=== PATIENT | female | born 1990 | race Caucasian/White ===

== ENCOUNTER 2021-04-17 18:28 | Emergency (ER) | payer OTHER, SELFPAY ==
--- NOTE | ~2021-04-17 | CT_ITS ---
EXAMINATION: CTA chest PE protocol DATE: 04/17/2021 22:41 INDICATION: Intermittent chest pain. TECHNIQUE: Computed tomography angiography (CTA) of the chest was performed with 100 mL Omnipaque-350 intravenous contrast timed to evaluate the pulmonary arteries. Coronal maximum intensity projection 3D-reconstructions were created by the technologist. Automated exposure control and iterative reconst ruction technique were employed. The dose-length product was 377.92 mGy-cm. COMPARISON: Chest single view 04/17/2021 FINDINGS: There is no pneumonia or pleural effusion. The heart size is normal. No pericardial effusio n. There is no pulmonary embolus. There is moderate thoracic spondylosis. IMPRESSION: 1. No pulmonary embolus. Reviewed, dictated and finalized at location A. IMPRESSION: 1. No pulmonary embolus.
--- NOTE | ~2021-04-17 | XR_ITS ---
EXAMINATION: XR chest 1V portable DATE: 04/17/2021 19:10 INDICATION: Midsternal chest pain. TECHNIQUE: A single frontal view of the chest was obtained. COMPARISON: None. FINDINGS: The chest demonstrates clear lungs without pneumonia, pleural effusion, or pneumothorax. Th e heart size is normal. IMPRESSION: 1. No acute cardiopulmonary disease. Reviewed, dictated and finalized at location A.
--- NOTE | 2021-04-17 18:31 | ECG_ITS ---
Measurements Intervals [place] Rate: 76 P: 27 VA: 152 QRS: -7 QRSD: 95 T: 39 QT: 375 QTc: 422 Interpretive Statements SINUS RHYTHM INCOMPLETE RIGHT BUNDLE BRANCH BLOCK BASELINE ARTIFACT- I, II, III, AVR, AVL, AVF, V1-V6 BORDERLINE ECG Electronically Signed On 04-17-2021 19:59:01 CDT by Chang Hodgson D.O.
[2021-04-17 18:43] VITALS: BP 126/80; PULSE 78; RESP 16; TEMP 36.4; O2SAT 96
--- NOTE | 2021-04-17 19:24 | ED.GENADULT ---
HPI - General Adult General Chief complaint: Chest Pain Stated complaint: chest pain Time Seen by Provider: 04/17/21 18:53 Source: patient Mode of arrival: ambulatory Limitations: no limitations History of Present Illness HPI narrative: This is 30 year old female with history of anxiety and depression who presents for evaluation of chest pain and depression. Patient states in February she found the father of her child . She has been having worsening anxiety and depression since this event. She was started on Hydroxyzine 1-2 weeks ago for anxiety. She states he developed substernal, epigastric pain after taking that medication for 4 days. She was taken off hydroxyzine, and she was started on Buspirone and Depakote on 04/08/21. She has continued to have this chest pain. She reports this pain is intermittent and she describes as tightening that radiations across her upper abdomen into her back. She denies associated shortness of breath, cough, fever or diaphoresis. She reports pain is 8/10. Today she developed nausea and vomiting. She also notes her chest pain started after trying [facility] Related Data Home Medications Medication Instructions Recorded Confirmed buspirone mg 04/17/21 Allergies Allergy/AdvReac Type Severity Reaction Status Date / Time No Known Allergies Allergy Verified 04/17/21 19:37 Review of Systems Review of Systems: All systems reviewed & are unremarkable except as noted in HPI and below Constitutional: Constitutional: Denies chills and Denies fever(s) Cardiovascular: Cardiovascular: Reports chest pain and Reports rapid heart rate Respiratory: Respiratory: Denies cough and Denies dyspnea Gastrointestinal: Gastrointestinal: Denies abdominal pain, Reports nausea and Reports vomiting Psychiatric: Psychiatric: Reports anxiety and Reports depression [facility] Past Medical History Medical History (Updated 04/17/21 @ 23:42 by Kalyn Merritt MD) Anxiety Depression Social History Social History (Updated 04/17/21 @ 19:26 by Kalyn Merritt MD) Smoking packs per day: 0.5 Smoking cigarettes per day: 10.0 Smoking status: Current every day smoker Substance use type: marijuana and hallucinogens Exam Const: General: no acute distress and alert Nutritional Appearance: obese Orientation/consciousness: patient oriented x3 HENMT: Head: normocephalic and atraumatic Eyes: EOM: EOMs intact bilaterally Chest: Chest palpation & inspection: tenderness sternum Resp: Effort & Inspection: normal respiratory effort Auscultation: clear to auscultation bilaterally Cardio: Rate: regular rate, not bradycardic and not tachycardic Rhythm: regular rhythm and regular rhythm Heart sounds: no murmurs GI: GI Palp: Yes Soft to palpation, No Tenderness to palpation present (GI) and No Guarding due to palpation present (GI) Auscultation: normal bowel sounds Skin: General skin exam: normal color Rashes: no rashes Neuro: General: patient oriented x3, moves all extremities and CN's II-XI intact bilaterally Extrem: General: normal to inspection and no pedal edema Psych: Mental Status: mental status grossly normal Affect: normal affect Course Reevaluation(s) Reevaluation #1: I discussed with patient chest pain is atypical. evaluated is unremarkable other than leukocytosis. She reports she recent had tattoo performed on right forearm and it has gotten infected. This is likely source of leukocytosis. Tattoo has some areas of wade crusting but no erythema. She states she did not come to ER for depression. She states she would never kill herself and she has no intention of harming herself . She is not suicidal. Date: 04/17/21 Time: 23:36 Vital Signs Vital signs: Vital Signs Temperature 97.6 F 04/17/21 18:43 Pulse Rate 78 04/17/21 18:43 Respiratory Rate 16 04/17/21 18:43 Blood Pressure 126/80 04/17/21 18:43 Pulse Oximetry 96 04/17/21 18:43 Temp
[2021-04-17 19:26] LABS: Basophils Absolute Auto 0.1 K/mm3 (0.0-0.1); Basophils Percent Auto 0.5 % (0.2-1.2); Eosinophils Absolute Auto 0.1 K/mm3 (0-0.3); Eosinophils Percent Auto 0.6 % (0-4.4); Hematocrit 39.6 % (37.0-47.0); Hemoglobin 13.7 g/dL (12.0-15.0); Immature Granulocyte Absolute 0.11 K/mm3 (0.00-0.031); Immature Granulocyte Percent A 0.5 % (0-0.5); Lymphocytes Absolute Auto 2.69 K/mm3 (0.9-3.2); Lymphocytes Percent Auto 11.7 % (18.3-44.2); Mean Corpuscular HGB Conc 34.6 g/dl (32-36); Mean Corpuscular Hemoglobin 34.1 pg (26-34); Mean Corpuscular Volume 98.5 fl (80-100); Mean Platelet Volume 10.5 fl (7.4-10.4); Monocytes Percent Auto 4.4 % (2.6-8.5); Neutrophils Absolute Auto 18.9 K/mm3 (1.3-6.7); Neutrophils Percent Auto 82.3 % (45.5-73.1); Platelet Count Result 278 k/mm3 (150-375); Red Blood Count 4.02 M/mm3 (4.2-5.4); Red Cell Distribution Width 13.1 % (11.5-14.5)
[2021-04-17 19:33] LABS: Add Urine Microscopic? YES; Appearance Urine Clear (Clear); Bacteria Urine Trace /hpf; Bilirubin Urine Negative (Negative); Blood Urine Negative (Negative); Color Urine Yellow (Yellow); Glucose Urine UA Negative (Negative); Ketones Urine Negative (Negative); Leukocyte Esterase Ur Trace LEU/UL (Negative); Mucus Urine Rare /lpf; Nitrate Urine Negative (Negative); Protein Urine Negative (Negative); RBC Urine 0-2 /hpf (0-2); Specific Grav Ur 1.009 (1.001-1.035); Squamous Epithelial Cell Urine Few /hpf (Few); Urobilinogen Urine Negative mg/dL (<2.0); WBC Urine 0-3 /hpf
[2021-04-17 19:36] LABS: Ethanol < 10 mg/dL (<10)
[2021-04-17 19:38] LABS: Anion Gap 7 mmol/L (8-16); Blood Urea Nitrogen 6 mg/dL (7-17); Calcium 9.4 mg/dL (8.4-10.2); Carbon Dioxide 28 mmol/L (22-30); Chloride 106 mmol/L (98-107); Estimated CRCL calculation 108 ml/min; Estimated Glomerular Filt Rate > 60; Glucose 148 mg/dL (65-110); Potassium 3.7 mmol/L (3.4-5.0); Sodium 141 mmol/L (137-145)
[2021-04-17 19:39] LABS: INR 0.9; Partial Thromboplastin Time 25.2 SECONDS (22.3-36.8)
[2021-04-17 19:49] LABS: Troponin I < 0.012 ng/mL (0.000-0.034)
[2021-04-17 20:00] LABS: Barbiturate Screen Urine Negative (Negative); Benzodiazepines Screen Urine Negative (Negative)
[2021-04-17 20:01] LABS: Amphetamine Screen Urine Negative (Negative); Cannabinoid Screen Urine Positive (Negative); Methadone Screen Urine Negative (Negative); Opiate Screen Urine Negative (Negative); Phencyclidine Screen Urine Negative (Negative)
[2021-04-17 20:09] LABS: Thyroid Stimulating Hormone 0.628 uIU/mL (0.465-4.680)
[2021-04-17 20:28] LABS: D Dimer 1.04 ug/mL (<0.48)
[2021-04-17 20:35] LABS: Alanine Aminotransferase 19 U/L (4-35); Albumin Level 4.4 g/dL (3.5-5.1); Alkaline Phosphatase 115 U/L (38-126); Aspartate Amino Transferase 23 U/L (14-36); Bilirubin,Total 0.5 mg/dL (0.2-1.3); Lipase 17 U/L (23-300)
[2021-04-17 21:59] LABS: Troponin I < 0.012 ng/mL (0.000-0.034)
[2021-04-17 22:28] LABS: Valproic Acid 29.7 ug/mL (50-120)
[2021-04-18] MEDS: KETOROLAC 30 MG/ML VIAL (*BKC) IV PUSH (00:17)
[2021-04-18 00:18] VITALS: BP 119/78; PULSE 74; RESP 18; O2SAT 99
[2021-04-18 16:29] LABS: Cocaine Screen Urine Negative (Negative)
== END 2021-04-18 00:59 | disposition home or self-care (01) ==
PROVIDERS: Emergency Medicine; Emergency Provider General Practice
DX: R07.89 Other chest pain (principal); L01.00 Impetigo, unspecified; F41.9 Anxiety disorder, unspecified; F32.A Depression, unspecified; F17.210 Nicotine dependence, cigarettes, uncomplicated; I45.10 Unspecified right bundle-branch block
CPT/HCPCS: 36415; 71045; 71275; 80048; 80076; 80164; 80307; 81001; 81025; 83690; 84443; 84484; 85025; 85380; 85610; 85730; 93005; 96374; 99284; J1885; Q9967

== ENCOUNTER 2022-02-15 02:25 | Emergency (ER) | payer OTHER, SELFPAY ==
--- NOTE | ~2022-02-15 | XR_ITS ---
EXAMINATION: XR knee RT 3V DATE: 02/15/2022 02:49 INDICATION: Right knee pain post fall TECHNIQUE: Anteroposterior, oblique and crosstable lateral views of the right knee were obtained COMPARISON: None. FINDINGS: Alignment is normal. No fracture. No joint effusion/layering lipohemarthrosis. Soft tissues are unre markable. IMPRESSION: 1. Negative right knee radiographs. Reviewed, dictated and finalized at location A.
[2022-02-15 02:24] VITALS: BP 144/90; PULSE 100; RESP 16; TEMP 36.2; O2SAT 97
[2022-02-15] MEDS: NAPROXEN 500 MG TABLET PO (02:38)
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
== END 2022-02-15 03:10 | disposition home or self-care (01) ==
PROVIDERS: Emergency Provider Emergency Medicine; PCP Family Medicine
DX: M23.91 Unspecified internal derangement of right knee (principal); F41.9 Anxiety disorder, unspecified; F32.9 Major depressive disorder, single episode, unspecified
CPT/HCPCS: 73562; 99283; A9270

== ENCOUNTER 2022-07-01 12:30 | Outpatient (CLI) | payer OTHER, SELFPAY ==
[2022-07-06 13:26] LABS: Factor V (Leiden) Mutation NEGATIVE
== END 2022-07-01 12:31 | disposition home or self-care (01) ==
PROVIDERS: PCP Family Medicine; Visit Provider Internal Medicine Hematology & Oncology
DX: D68.9 Coagulation defect, unspecified (principal)
CPT/HCPCS: 36415; 81241

== ENCOUNTER 2022-07-21 12:08 | Outpatient (CLI) | payer OTHER, SELFPAY | END 2022-07-21 12:09 | disposition home or self-care (01) | PROVIDERS: PCP Family Medicine; Visit Provider Internal Medicine Hematology & Oncology | DX: D68.9 Coagulation defect, unspecified (principal) | CPT/HCPCS: 36415; 81240 ==

== ENCOUNTER 2022-08-15 12:21 | Emergency (ER) | payer OTHER, SELFPAY ==
[2022-08-15 12:31] VITALS: BP 105/81; PULSE 76; RESP 14; TEMP 36.7; O2SAT 98
--- NOTE | 2022-08-15 12:35 | ED.URI ---
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 Patient states the symptoms have been going on for approximately 1 month. Patient denies any choking, difficulty breathing or swallowing, fevers, chills, vomiting, or diarrhea. Patient was recently diagnosed with a DVT in her left leg and has not recieved treatment yet. Pt staets they are planning on doing a procedure on her leg due to the large size of the clot. Pt is not on anticoagulants. Pt reports intermittent shortness of breath. Related Data Home Medications Medication Instructions Recorded Confirmed buspirone 5 mg tablet 5 mg PO DIRECTED 04/17/21 08/15/22 Allergies Allergy/AdvReac Type Severity Reaction Status Date / Time latex Allergy Swelling Verified 08/15/22 12:33 Review of Systems Review of Systems: CONSTITUTIONAL: Denies fever, chills, or sweats. EYES: Denies visual changes, redness, or discharge. ENT: Denies otalgia and sore throat. States she feels like there is something in her throat. CARDIOVASCULAR: Circumferential chest pressure. RESPIRATORY: Denies cough or dyspnea. GASTROINTESTINAL: Denies abdominal pain, nausea, vomiting, or diarrhea. GENITOURINARY: Denies dysuria or hematuria. SKIN: Denies rash or itching. MUSCULOSKELETAL: Denies back pain, joint pain, or myalgia. NEUROLOGIC: Denies headache, numbness, or weakness. 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 Uses anticoagulation with only. Hair loss History of postoperative complication of surgical procedure History of UTI Latex allergy Surgical History Surgical History History of dilation and curettage Family History Family History Other Arthritis Breast cancer Depression Heart disease Hypertension Lung disease Social History Social History (Reviewed 04/26/22 @ 15:29 by BEBE Beckwith Smoking packs per day: 1.5 Smoking cigarettes per day: 30.0 Smoking status: Current every day smoker Alcohol intake: current Alcohol use details: 2 per month Substance use: never Substance use type: marijuana and hallucinogens Comments At the time of my signature, I reviewed and agree with the nursing past medical, surgical, social, and family history. There is no relevant family history pertinent to the patient complaint. Exam Narrative: GENERAL: This is a well-nourished, well-developed patient, in no apparent distress. HEAD: normocephalic, atraumatic. EYES: PERRL. Sclera clear/white. Vision is grossly intact. EARS: External ears normal, auditory canals clear and without drainage, TMs normal without perforation. Hearing grossly intact. NOSE: External nose normal with no obvious nasal discharge, nares without redness, no rhinorrhea. THROAT: Mucous membranes moist, posterior pharynx clear. NECK: Neck supple, non-tender without lymphadenopathy, masses or thyromegaly. CARDIOVASCULAR: Regular rate and rhythm without murmurs, gallops, or rubs. RESPIRATORY: Clear to auscultation. Breath sounds equal bilaterally. No wheezes, rales, or rhonchi. GASTROINTESTINAL: Abdomen soft, non-tender, nondistended. Bowel sounds are active. No hepato-splenomegaly, or palpable masses. No guarding. SKIN: warm, intact with no suspicious lesions or rash, good texture and turgor. NEURO: awake, alert, and oriented to person, place and time. There were no obvious focal neurologic
== END 2022-08-15 12:36 | disposition short-term general hospital (02) ==
PROVIDERS: Emergency Provider Nurse Practitioner Family; PCP Family Medicine
DX: R07.9 Chest pain, unspecified (principal); F41.9 Anxiety disorder, unspecified; F32.A Depression, unspecified; F17.210 Nicotine dependence, cigarettes, uncomplicated
CPT/HCPCS: 99212; G0463

== ENCOUNTER 2022-08-16 15:41 | Emergency (ER) | payer OTHER, SELFPAY ==
[2022-08-16 15:50] VITALS: BP 122/70; PULSE 94; RESP 16; TEMP 36.9; O2SAT 100
[2022-08-16 16:11] LABS: Basophils Absolute Auto 0.1 K/mm3 (0.0-0.1); Basophils Percent Auto 0.3 % (0.2-1.2); Eosinophils Absolute Auto 0.2 K/mm3 (0-0.3); Hematocrit 42.6 % (37.0-47.0); Hemoglobin 14.2 g/dL (12.0-15.0); Immature Granulocyte Absolute 0.05 K/mm3 (0.00-0.031); Immature Granulocyte Percent A 0.3 % (0-0.5); Lymphocytes Absolute Auto 1.03 K/mm3 (0.9-3.2); Lymphocytes Percent Auto 6.2 % (18.3-44.2); Mean Corpuscular HGB Conc 33.3 g/dl (32-36); Mean Corpuscular Hemoglobin 33.3 pg (26-34); Mean Platelet Volume 9.8 fl (7.4-10.4); Monocytes Absolute Auto 0.7 K/mm3 (0.1-0.6); Monocytes Percent Auto 4.1 % (2.6-8.5); Neutrophils Absolute Auto 14.7 K/mm3 (1.3-6.7); Neutrophils Percent Auto 88.1 % (45.5-73.1); Platelet Count Result 247 k/mm3 (150-375); Red Blood Count 4.26 M/mm3 (4.2-5.4); Red Cell Distribution Width 12.6 % (11.5-14.5); White Blood Count 16.7 K/mm3 (4.5-10.0)
[2022-08-16 16:14] LABS: Appearance Urine Clear (Clear); Bilirubin Urine Negative (Negative); Blood Urine Negative (Negative); Color Urine Yellow (Yellow); Glucose Urine UA Negative (Negative); Ketones Urine Negative (Negative); Leukocyte Esterase Ur Negative LEU/UL (Negative); Nitrate Urine Negative (Negative); Protein Urine Negative (Negative); Urobilinogen Urine 0.2 mg/dL (<2.0); pH Urine 7.5 (5.0-9.0)
[2022-08-16 16:16] LABS: Add Urine Microscopic? NO
[2022-08-16 16:24] LABS: Alanine Aminotransferase 26 U/L (6-35); Albumin Level 4.3 g/dL (3.5-5.1); Alkaline Phosphatase 124 U/L (38-126); Anion Gap 3 mmol/L (8-16); Aspartate Amino Transferase 23 U/L (14-36); Bilirubin,Total 0.7 mg/dL (0.2-1.3); Blood Urea Nitrogen 9 mg/dL (7-17); Calcium 8.7 mg/dL (8.4-10.2); Carbon Dioxide 29 mmol/L (22-30); Chloride 100 mmol/L (98-107); Estimated CRCL calculation 87 ml/min; Estimated Glomerular Filt Rate > 60; Glucose 107 mg/dL (65-110); Lipase 14 U/L (23-300); Potassium 3.9 mmol/L (3.4-5.0); Sodium 132 mmol/L (137-145)
--- NOTE | 2022-08-16 18:25 | PC.NURSE ---
PT DIDN'T ANSWER CALL FOR ROOM. NOT FOUND IN WAITING ROOM.
--- NOTE | 2022-08-16 18:45 | PC.NURSE ---
PT NOT FOUND IN WAITING ROOM WHEN CALLED FOR ROOM.
--- NOTE | 2022-08-16 19:06 | PC.NURSE ---
PT NOT FOUND IN WAITING ROOM.
== END 2022-08-16 21:00 | disposition left against medical advice (07) ==
PROVIDERS: Emergency Provider Emergency Medicine; PCP Family Medicine
DX: R10.9 Unspecified abdominal pain (principal)
CPT/HCPCS: 36415; 80053; 81003; 83690; 85025; 99199

== ENCOUNTER 2022-09-18 13:02 | Emergency (ER) | payer OTHER, SELFPAY ==
--- NOTE | ~2022-09-18 | XR_ITS ---
XR knee RT min 4V 09/18/2022 13:52 Indication: Right knee pain Procedure: 4 views right knee Comparison: 02/15/2022 Findings: Osteopenia. Moderate joint effusion. No fracture or traumatic malalignment. No foreign bodi es. Impression: 1: Moderate knee effusion. Reviewed, dictated and finalized at location A. Impression: 1: Moderate knee effusion.
[2022-09-18 13:04] VITALS: BP 99/71; PULSE 81; RESP 19; TEMP 36.3; O2SAT 99
--- NOTE | 2022-09-18 13:29 | ED.LOWEXIN ---
HPI - Extremity Injury (Lower) General Chief Complaint: Extremity Injury, Lower Stated Complaint: leg pain Time Seen by Provider: 09/18/22 13:22 History of Present Illness HPI Narrative: 32 y/o female presents with right knee pain and swelling since last night. patient states she was walking and slipped on gravel and fell landing on his knee. patient denies hitting head or LOC. patient had recent ACL repair with Dr. Edgar. patient states her knee is swollen today. patient has knee brace and crutches for ambulation. no other complaints. 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 Uses anticoagulation with only. Hair loss History of postoperative complication of surgical procedure History of UTI Latex allergy Surgical History Surgical History History of dilation and curettage Family History Family History Other Arthritis Breast cancer Depression Heart disease Hypertension Lung disease Social History Social History Smoking packs per day: 1.5 Smoking cigarettes per day: 30.0 Smoking status: Current every day smoker Alcohol intake: current Alcohol use details: 2 per month Substance use: never Substance use type: marijuana and hallucinogens Exam Const: General: healthy appearing and no acute distress HENMT: Head: normal to inspection Ears: external ears normal Face/Nose/Sinus: Normal external nose present Eyes: Conjunctivae: conjunctivae normal EOM: EOMs intact bilaterally Neck: Neck: normal visual inspection Chest: Chest palpation & inspection: normal inspection of the chest Resp: Effort & Inspection: normal respiratory effort Auscultation: clear to auscultation bilaterally Cardio: Rate: regular rate GI: GI Palp: Yes Soft to palpation Back/Spine/Pelvis: Back: no CVA tenderness Skin: General skin exam: normal color Neuro: General: patient oriented x3 and moves all extremities Extrem: General: edema Other: swelling to right anterior knee. pain to anterior and posterior knee Psych: Mental Status: mental status grossly normal Affect: normal affect Course Vital Signs Vital signs: Vital Signs Temperature 36.3 C L 09/18/22 13:04 Pulse Rate 81 09/18/22 13:04 Respiratory Rate 19 09/18/22 13:04 Blood Pressure 99/71 L 09/18/22 13:04 Pulse Oximetry 99 09/18/22 13:04 Oxygen Delivery Room Air 09/18/22 13:04 Temperature 36.3 C L 09/18/22 13:04 Pulse Rate 81 09/18/22 13:04 Respiratory Rate 19 09/18/22 13:04 Blood Pressure 99/71 L 09/18/22 13:04 Pulse Oximetry 99 09/18/22 13:04 Oxygen Delivery Room Air 09/18/22 13:04 MDM - Extremity Injury (Lower) Differential Diagnosis Differential diagnosis: Likely other (fracture vs effusion vs sprain) Imaging Data Radiologist's impression: RIGHT KNEE EFFUSION Discharge Plan Discharge Clinical Impression: Effusion of knee joint right Patient Disposition: Home, Self-Care Condition: Stable Instructions: Antibiotic Form, Swollen Knee Joint (ED) Additional Instructions: TAKE MEDICATIONS PRESCRIBED RETURN FOR WORSENING SYMPTOMS FOLLOW-UP WITH ORTHOP
== END 2022-09-18 14:38 | disposition home or self-care (01) ==
LOC: ANHED 14:31
PROVIDERS: Emergency Provider Nurse Practitioner Family; PCP Family Medicine
DX: M25.461 Effusion, right knee (principal); F17.210 Nicotine dependence, cigarettes, uncomplicated; F41.9 Anxiety disorder, unspecified; M19.90 Unspecified osteoarthritis, unspecified site; F31.9 Bipolar disorder, unspecified
CPT/HCPCS: 73564; 99283

== ENCOUNTER 2022-10-01 01:22 | Day surgery (SDC) | payer OTHER, SELFPAY ==
[2022-09-22 12:49] VITALS: BMI 37.1
--- NOTE | 2022-09-22 12:55 | PC.NURSE ---
Report to the Outpatient Waiting Room, entrance under the green pavilion located off [facility], at time 0600 on date 10/01/22. Planned Procedure Time: 0730. Time changes happen often and if your time is changed the preop area will call you the afternoon before. - You and your visitor will be asked to self-screen and do not enter if you have any COVID symptoms. - Only one visitor is requested with a max of two and NO children visitors are allowed at this time. - The patient visitor may be requested to leave or wait in car when not with patient due to distancing restrictions. - A mask is optional within the hospital at this time. Patients may have clear liquids (water, carbonated beverages, clear teas, apple juice) until 3 hours prior to surgery with a maximum of 20 ounces. - No food from midnight until time of surgery Take the following medications with a SIP of water the morning of surgery: AMOXICILLIN, BUSPIRONE DO NOT STOP ANY OF YOUR OTHER PRESCRIPTION MEDICATIONS PRIOR TO SURGERY EXCEPT THE FOLLOWING Medications to discontinue per physician: KETOROLAC Date to take last dose: PER DR. HERRERA Please no make-up, nail slovenian, hairspray, perfume, deodorant, or body powder the day of surgery. No jewelry (including any body piercings) or valuables the day of surgery, leave them at home. Please take a shower or bath the night before, or the morning of, surgery with an antibacterial soap. Wear comfortable, loose fitting clothing. - Jewelry must be removed prior to entering the operating room. Rings and piercings that are not removed may be cut off. - The hospital will not accept responsibility for valuables. - Please leave all valuables, including medications, at home the day of surgery. If you are going home after surgery, a licensed ambulance driver must drive you home. - NO public transportation without another adult if you receive anesthesia. - We recommend that an adult stay with you for 24 hours following discharge. - We also recommend that you do not drive, make important decision, drink alcoholic beverages, or take any drugs that were not prescribed by your health care provider for at least 24 hours after your discharge time. Follow any additional instructions given to you from your surgeon. If you or anyone in your household have experienced Covid symptoms in the past week, please notify your surgeon or the nurse liaison at the phone number below for possible testing. Telephone instructions given to PT - [facility] and asked if any additional questions and then verbalized understanding. Patient advised to call surgeon office or pre surgery nurse liaison [phone] if any additional questions.
[2022-10-01] MEDS: LACTATED RINGERS 1,000 ML 30 ML IV CONT (06:40)
[2022-10-01] MEDS: ACETAMINOPHEN 500 MG TABLET 1000 MG PO (06:44)
[2022-10-01] MEDS: CELECOXIB 200 MG CAPSULE PO (06:44)
--- NOTE | 2022-10-01 06:48 | P.PNAN_ITS ---
Anes - Initial Pre Proc Eval Procedure: Operation Date: 10/01/22 07:30 Proposed Procedures p Right Knee Anterior Cruciate Ligament Reconstruction, with Right Knee Medial and Lateral Meniscectomy Versus Repair - Shalom Cruz MD Date/Time: 10/01/22 06:48 Surgeon: Shalom Cruz MD Pre Op Diagnosis: right knee acl tear, medial&lateral meniscus tears Patient Data Age: 32 Gender: F Height: 1.56 m Weight: 90.72 kg Allergies Allergy/AdvReac Type Severity Reaction Status Date / Time latex Allergy Swelling Verified 10/01/22 06:32 Home Medications Medication Instructions Recorded Confirmed Type buspirone 5 mg tablet 5 mg PO DIRECTED PRN Anxiety 04/17/21 10/01/22 History amoxicillin 500 mg capsule 500 mg PO Q8H 09/22/22 10/01/22 History chlorhexidine gluconate 4 % 1 applic topical ONCE #237 mL 09/23/22 10/01/22 Rx topical liquid (Hibiclens) rivaroxaban 10 mg tablet (Xarelto) 10 mg PO DAILY Postoperative DVT 09/24/22 Rx Prophylaxis #21 tabs Patient hx anesthesia problems: none Family hx anesthesia problems: none Results Review: All pre-operative results and documents have been reviewed as part of the pre- operative evaluation. 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 Uses anticoagulation with only. Hair loss History of postoperative complication of surgical procedure History of UTI Latex allergy Surgical History Surgical History History of dilation and curettage Family History Family History Other Arthritis Breast cancer Depression Heart disease Hypertension Lung disease Social History Social History Smoking packs per day: 1.5 Smoking cigarettes per day: 30.0 Smoking status: Current every day smoker Tobacco type: e-cigarettes/vaping Alcohol intake: current Alcohol use details: 2/MONTH Substance use: current Substance use type: marijuana Living arrangements: with family Additional living arrangements comments: DAUGHTER Spiritual care concerns: No Anes - Eval Final PreProcedure Day of Procedure 10/01/22 06:48 Patient weight: obese Heart: regular rate and rhythm Lungs: clear to auscultation Airway: Mallampati scale class II Neurological: alert and oriented Last oral intake: >/= 8 hours ASA classification: III Emergent: no Anesthetic plan: proceed Anesthesia type and monitoring: general LMA and standard monitoring Results Review: All pre-operative results and documents have been reviewed as part of the pre-operative evaluation. Informed Consent: The patient's anesthetic plan including avoiding fentanyl use due to patient's preference and its attendant risks and benefits were discussed with the patient/family/POA. Questions were solicited and answers provided to the satisfaction of the patient/family/POA.
[2022-10-01 07:02] VITALS: BP 117/76; PULSE 79; RESP 16; TEMP 36.3; O2SAT 99
--- NOTE | 2022-10-01 07:36 | SUR.PREOP ---
0736- PT PROCEDURE CANCELLED D/T TRAYS FOR SURGERY NOT BEING READY. DR. HERRERA SPOKE TO PT AND EXPLAINED. PT UPDATED TO CALL OFFICE TO RESCHEDULE.
== END 2022-10-01 07:52 ==
PROVIDERS: PCP Family Medicine; Visit Provider Orthopaedic Surgery
PROC: (CPT 29888; principal; 2022-10-01 07:30)
DX: S83.511A Sprain of anterior cruciate ligament of right knee, initial encounter (principal); S83.241A Other tear of medial meniscus, current injury, right knee, initial encounter; S83.281A Other tear of lateral meniscus, current injury, right knee, initial encounter; Z53.8 Procedure and treatment not carried out for other reasons; Y04.2XXA Assault by strike against or bumped into by another person, initial encounter
CPT/HCPCS: 99213; A9270; G0463; J7120

== ENCOUNTER 2022-10-05 00:14 | Day surgery (SDC) | payer OTHER, SELFPAY ==
[2022-10-01 14:25] VITALS: BMI 36.3
--- NOTE | 2022-10-01 14:26 | PC.NURSE ---
Report to the Outpatient Waiting Room, entrance under the green pavilion located off [facility], at time 10:00AM on date 10-05-22. Planned Procedure Time: 12:00PM. Time changes happen often and if your time is changed the preop area will call you the afternoon before. - You and your visitor will be asked to self-screen and do not enter if you have any COVID symptoms. - Only one visitor is requested with a max of two and NO children visitors are allowed at this time. - The patient visitor may be requested to leave or wait in car when not with patient due to distancing restrictions. - A mask is optional within the hospital at this time. Patients may have clear liquids (water, carbonated beverages, clear teas, apple juice) until 3 hours prior to surgery (9:00AM) with a maximum of 20 ounces. NO MILK OR CREAMERS. - No food from midnight until time of surgery - Infants may have breast milk until 4 hours before surgery, infant formula 6 hours prior to surgery. Take the following medications with a SIP of water the morning of surgery: BUSPAR NEEDED DO NOT STOP ANY OF YOUR OTHER PRESCRIPTION MEDICATIONS PRIOR TO SURGERY ?EXCEPT THE FOLLOWING Medications to discontinue per physician N/A Please no make-up, nail vincentian, hairspray, perfume, deodorant, or body powder the day of surgery. No jewelry (including any body piercings) or valuables the day of surgery, leave them at home. Please take a shower or bath the night before, or the morning of, surgery with an antibacterial soap. Wear comfortable, loose fitting clothing. - Jewelry must be removed prior to entering the operating room. Rings and piercings that are not removed may be cut off. - The hospital will not accept responsibility for valuables. - Please leave all valuables, including medications, at home the day of surgery. If you are going home after surgery, a licensed cryogenic transport driver must drive you home. - NO public transportation without another adult if you receive anesthesia. - We recommend that an adult stay with you for 24 hours following discharge. - We also recommend that you do not drive, make important decision, drink alcoholic beverages, or take any drugs that were not prescribed by your health care provider for at least 24 hours after your discharge time. Follow any additional instructions given to you from your surgeon. If you or anyone in your household have experienced Covid symptoms in the past week, please notify your surgeon or the nurse liaison at the phone number below for possible testing. Telephone instructions given to PATIENT and asked if any additional questions and then verbalized understanding. Patient advised to call surgeon office or pre surgery nurse liaison [phone] if any additional questions.
[2022-10-05] VITALS (10 sets, daily range): BP systolic 108–134; BP diastolic 65–86; PULSE 82–95; RESP 14–18; TEMP 36.9; O2SAT 93–100
--- NOTE | 2022-10-05 07:18 | WPDHPUPDATE1 ---
History and Physical Update Update Date/Time: 10/05/22 07:18 History and Physical has been reviewed, including an updated exam of the patient. There are NO changes in the patient's condition. Risks, benefits, and alternatives have been discussed and questions answered. Patient agrees to proceed with procedure.
[2022-10-05] MEDS: ACETAMINOPHEN 500 MG TABLET 1000 MG PO (10:54)
[2022-10-05] MEDS: CELECOXIB 200 MG CAPSULE PO (10:54)
[2022-10-05] MEDS: LACTATED RINGERS 1,000 ML 30 ML IV CONT ×2 (10:55→14:40)
--- NOTE | 2022-10-05 11:42 | WPDANESEPPF ---
Anes - Initial Pre Proc Eval Procedure: Operation Date: 10/05/22 12:00 Proposed Procedures p Right Knee Anterior Cruciate Ligament Reconstruction, with Right Knee Medial and Lateral Meniscectomy Versus Repair - Shalom Crzu MD Date/Time: 10/05/22 11:42 Surgeon: Shalom Cruz MD Pre Op Diagnosis: Rt Knee ACL Tear, Med & Lat Meniscus tears Patient Data Age: 32 Gender: F Height: 1.57 m Weight: 88.5 kg Last Vital Signs Temp 36.9 C 10/05/22 10:56 Pulse 90 10/05/22 10:56 Resp 16 10/05/22 10:56 BP 115/80 10/05/22 10:56 Pulse Ox 98 10/05/22 10:56 O2 Del Method Room Air 10/05/22 10:56 Allergies Allergy/AdvReac Type Severity Reaction Status Date / Time latex Allergy Swelling Verified 10/05/22 10:54 fentanyl AdvReac Other Verified 10/05/22 10:54 Home Medications Medication Instructions Recorded Confirmed Type buspirone 5 mg tablet 5 mg PO DIRECTED PRN Anxiety 04/17/21 10/01/22 History amoxicillin 500 mg capsule 500 mg PO Q8H 09/22/22 10/01/22 History chlorhexidine gluconate 4 % 1 applic topical ONCE #237 mL 09/23/22 10/01/22 Rx topical liquid (Hibiclens) rivaroxaban 10 mg tablet (Xarelto) 10 mg PO DAILY Postoperative DVT 09/24/22 Rx Prophylaxis #21 tabs Patient hx anesthesia problems: none Family hx anesthesia problems: other (atelectasis) Results Review: All pre-operative results and documents have been reviewed as part of the pre-operative evaluation. 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 Uses anticoagulation with only. Hair loss History of postoperative complication of surgical procedure History of UTI Latex allergy Surgical History Surgical History History of dilation and curettage Family History Family History Other Arthritis Breast cancer Depression Heart disease Hypertension Lung disease Social History Social History Smoking packs per day: 0.5 Smoking cigarettes per day: 10.0 Years smoked: 10 Smoking pack-years: 5.00 Smoking status: Current every day smoker Tobacco type: e-cigarettes/vaping Alcohol intake: current Alcohol use details: 2/MONTH Substance use: current Substance use type: marijuana Last use: 09-30-22 Living arrangements: with family Additional living arrangements comments: DAUGHTER Spiritual care concerns: No Anes - Eval Final PreProcedure Day of Procedure 10/05/22 11:42 Patient weight: obese Heart: regular rate and rhythm Lungs: decreased breath sounds Airway: Mallampati scale class II Neurological: alert and oriented Last oral intake: >/= 8 hours ASA classification: III Emergent: no Anesthetic plan: proceed Anesthesia type and monitoring: general LMA and standard monitoring Results Review: All pre-operative results and documents have been reviewed as part of the pre-operative evaluation. Informed Consent: The patient's anesthetic plan and its attendant risks and benefits were discussed with the patient/family/POA. Questions were solicited and answers provided to the satisfaction of the patient/family/POA.
[2022-10-05] MEDS: ceFAZolin 2 GM/D5W 50 ML 2 GM/50 ML BAG IVPB (11:59)
[2022-10-05] MEDS: BUPivacaine HCL 0.5% 10 ML AMP 30 ML INFILTRATE (12:37)
[2022-10-05] MEDS: MIDAZOLAM HCL (*CRX) 2 MG/2 ML VIAL IV PUSH (14:53)
[2022-10-05] MEDS: HYDROmorphone HCL INJ (*CRX) 1 MG/ML SYR 0.5 MG IV PUSH (14:56)
--- NOTE | 2022-10-05 15:01 | P.OP_ITS ---
Procedure Note - Detailed Date of Procedure 10/05/22 Pre-op Diagnosis Rt Knee ACL Tear, Med & Lat Meniscus tears Post-op Diagnosis Same Procedure Performed RIGHT ACL RECONSTRUCTION, PARTIAL MEDIAL AND LATERAL MENISCECTOMIES Surgeon Shalom Cruz MD Anesthesia General Description of Procedure PATIENT WAS TAKEN TO THE OR. GENERAL ANESTHESIA WAS INDUCED. THE RIGHT KNEE WAS TAKEN THROUGH A RANGE OF MOTION AND A PIVOT SHIFT TEST WAS PREFORMED AND THIS WAS POSITIVE. A SUSAN TEST AND ANTERIOR DRAWER TESTS WERE ALSO PREFORMED AND BOTH SHOWED LAXITY OF THE ACL. THE RIGHT LEG WAS PREPPED AND DRAPED STERILE. TROCARS WERE PLACED IN THE USUAL FASHION. CAMERA WAS INTRODUCED. THERE WAS MILD CHONDROMALACIA TO THE PATELLA FEMORAL JOINT. THERE WAS A LOT OF SYNOVITIS IN THIS COMPARTMENT WELL. THE MEDIAL COMPARTMENT SHOWED MILD CHONDROMALACIA TO THE MED FEMORAL CONDYLE. THERE WAS A COMPLEX TEAR TO THE MEDIAL MENISCUS. THE MENISCUS TEAR WAS RESECTED WITH A BITER AND A SHAVER TO A SMOOTH BASE. NEXT THE ACL WAS IDENTIFIED AND FOUND TO BE COMPLETELY TORN. THE LATERAL MENISCUS WAS SHOWED TO HAVE A LARGE COMPLEX TEAR. IT WAS NOT AMENABLE TO REPAIR. THE MENISCUS TEAR WAS THEN DEBRIDED AND RESECTED. THE LATERAL COMPARTMENT HAD GRADE 2 CHONDROMALACIA. 0CHONDROPLASTY WAS PREFORMED. THE INTERCONDYLAR NOTCH WAS THEN ENTERED. THE ACL REMNANTS WERE THEN DEBRIDED UNTIL THE PCL WAS IDENTIFIED AND THE SUPERIOR LATERAL NOTCH WAS IDENTIFIED. A NOTCH PLASTY WAS PREFORMED UNTIL THE OVER THE TOP POSITION WAS SEEN. A MEDIAL INCISION WAS MADE MEDIAL TO THE TIBIAL TUBERCLE AND DISSECTION CONTINUED DOWN TO BONE. A TIBIAL ACL GUIDE WAS PLACE UP AGAINST THE PCL AND WAS SET AT A 55 DEG POSITION. A GUIDE PIN WAS DRILLED THROUGH THE GUIDE EXITING JUST ANTERIOR TO THE PCL STUMP. A 9 MM TIBIAL TUNNEL WAS DRILLED. A #7 BACK WALL GUIDE WAS PLACED OVER THE GUIDE PIN AT THE 10 O'CLOCK POSITION ON THE FEMUR. A 9 MM FEMORAL TUNNEL WAS DRILLED TO 25 MM. AN ALLOGRAFT WAS ATTACHED TO A TIGHT ROPE SYSTEM. THE ALLOGRAFT WAS PASSED THROUGH THE TIBIAL AND FEMORAL TUNNELS. THE TIGHT ROPE WAS THEN TIGHTENED AND THE ENDO BUTTON WAS SECURED OVER THE SUPERIOR LATERAL FEMORAL CORTEX. WITH THE KNEE AT 30 DEG OF FLEXION AND TENSION ON THE TIBIAL SIDE OF THE ALLOGRAFT, A 25 MM BY 9.5 MM TISSUE INTERFERENCE SCREW WAS PLACED IN THE TIBIAL TUNNEL OVER A GUIDE WIRE. THE SCREW HAD AN EXCELLENT BITE. THE KNEE WAS TAKEN THROUGH A RANGE OF MOTION AND THE ACL WAS VERY STABLE. THE INTERNAL BRACE SUTURE WAS THEN PLACED IN THE TIBIAL CORTEX VIA A SWIVEL LOCK ANCHOR SYSTEM. SYNOVECTOMY WAS PREFORMED IN THE PATELLO FEMORAL JOINT AND IN THE MEDIAL COMPARTMENT. THEN THE PATELLA AND TROCHLEA UNDERWENT CHONDROPLASTY. THE SURFACE WAS SMOOTH AND THE PATELLA TRACKED WITHOUT TILT. THE INSTRUMENTS WERE REMOVED AFTER THOROUGH IRRIGATION OF THE KNEE JOINT. THE WOUNDS WERE WASHED. THE TROCAR WOUNDS WERE APPROXIMATED WITH 4-0 NYLON. THE TIBIA WOUND WAS APPROXIMATED WITH 0 VICRYL, 2- 0 VICRYL AND 3-0 QUILL SUTURE. THE WOUNDS WERE WASHED. DERMABOND AND THEN A STERILE DRESSING WAS APPLIED. A BRACE WAS PLACED.PATIENT WAS EXTUBATED. Estimated Blood Loss -50.0 Drains No Complications No immediate complications Condition Stable Disposition PACU
[2022-10-05] MEDS: oxyCODONE HCL (*CRX) 5 MG TAB IR PO (16:29)
--- NOTE | 2022-10-05 19:19 | SUR.PHASEII ---
PATIENT CALLED TO SAY THAT THE [facility] [place] [facility] HYDROCODONE WITH TYLENOL. [facility] CALLED THIS [facility] TO VERIFY AND THEY [facility]T. PATIENT CALLED TO FIND OUT HER NEXT CHOICE FOR A PHARMACY. [facility]OSE [facility] [place]; THEY ALSO [facility]T CARRY THE MED. I CALLED DR. COCHRAN TO INFORM HIM OF THIS SITUATION. HE SAID HE WOULD TAKE CARE OF IT AND WOULD CALL THE PATIENT TO TELL HER THE PLAN.
== END 2022-10-05 17:20 | disposition home or self-care (01) ==
PROVIDERS: PCP Family Medicine; Visit Provider Orthopaedic Surgery
PROC: (CPT 29888; principal; 2022-10-05 12:00)
DX: S83.511A Sprain of anterior cruciate ligament of right knee, initial encounter (principal); S83.231A Complex tear of medial meniscus, current injury, right knee, initial encounter; S83.271A Complex tear of lateral meniscus, current injury, right knee, initial encounter; Y04.2XXA Assault by strike against or bumped into by another person, initial encounter; M65.861 Other synovitis and tenosynovitis, right lower leg; M94.261 Chondromalacia, right knee; D68.2 Hereditary deficiency of other clotting factors; F31.9 Bipolar disorder, unspecified; F41.9 Anxiety disorder, unspecified; Z79.01 Long term (current) use of anticoagulants; F17.290 Nicotine dependence, other tobacco product, uncomplicated; F12.90 Cannabis use, unspecified, uncomplicated; E66.9 Obesity, unspecified; Z68.35 Body mass index [BMI] 35.0-35.9, adult
CPT/HCPCS: 29880; 29888; A9270; C1713; J0690; J1100; J1170; J2250; J2270; J2405; J2704; J3010; J7120; L1830

== ENCOUNTER 2022-10-20 13:45 | Emergency (ER) | payer OTHER, SELFPAY ==
[2022-10-20 14:06] VITALS: BP 116/61; PULSE 81; RESP 16; TEMP 36.7; O2SAT 100
--- NOTE | 2022-10-20 14:14 | ED.URI ---
HPI - URI/Sore Throat General Chief Complaint: Upper Respiratory Infection Stated Complaint: Sore Throat Source: patient and RN notes reviewed History of Present Illness HPI Narrative: 32 yo F presents to urgent care with complaints of a scratchy throat, popping in the ears, diarrhea, and runny nose x2 days. Patient denies any vomiting, fevers chills, or sore throat. Patient was afraid she might have her son strep throat. Patient has not had any medications for her symptoms. Some parts of this dictation were generated by voice recognition software and may contain typographical and/or grammatical inaccuracies. Related Data Home Medications Medication Instructions Recorded Confirmed buspirone 5 mg tablet 5 mg PO DIRECTED PRN Anxiety 04/17/21 10/20/22 Allergies Allergy/AdvReac Type Severity Reaction Status Date / Time latex Allergy Swelling Verified 10/20/22 13:58 fentanyl AdvReac Other Verified 10/20/22 13:58 Review of Systems Review of Systems: Pertinent positives and pertinent negatives per HPI. 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 Uses anticoagulation with only. Hair loss History of postoperative complication of surgical procedure History of UTI Latex allergy Surgical History Surgical History History of dilation and curettage Family History Family History Other Arthritis Breast cancer Depression Heart disease Hypertension Lung disease Social History Social History Smoking packs per day: 0.5 Smoking cigarettes per day: 10.0 Years smoked: 10 Smoking pack-years: 5.00 Smoking status: Current every day smoker Tobacco type: e-cigarettes/vaping Alcohol intake: current Alcohol use details: 2/MONTH Substance use: current Substance use type: marijuana Last use: 09-30-22 Living arrangements: with family Additional living arrangements comments: DAUGHTER Spiritual care concerns: No Comments At the time of my signature, I reviewed and agree with the nursing past medical, surgical, social, and family history. There is no relevant family history pertinent to the patient complaint. Exam Narrative: GENERAL: This is a well-nourished, well-developed patient, in no apparent distress. HEAD: normocephalic, atraumatic. EYES: Sclera clear/white. Vision is grossly intact. EARS: External ears normal, auditory canals clear and without drainage, TMs normal without perforation. Hearing grossly intact. NOSE: External nose normal with no obvious nasal discharge, nares without redness, no rhinorrhea. THROAT: Mucous membranes moist, posterior pharynx clear. NECK: Neck supple, non-tender without lymphadenopathy, masses or thyromegaly. CARDIOVASCULAR: Regular rate and rhythm without murmurs, gallops, or rubs. RESPIRATORY: Clear to auscultation. Breath sounds equal bilaterally. No wheezes, rales, or rhonchi. GASTROINTESTINAL: Abdomen soft, non-tender, nondistended. Bowel sounds are active. No hepato-splenomegaly, or palpable masses. No guarding. SKIN: warm, intact with no suspicious lesions or rash, good texture and turgor. NEURO: awake, alert, and oriented to person, place and time. There were no obvious focal neurologic abnormalities. EXTREMITIES: No clubbing, cyanosis, or edema. No joint tenderness, effusion, or edema noted. BACK: Nontender without deformity or crepitance. No flank tenderness. Course Course Level of Care: Express Care Visit Vital Signs Vital signs: Vital Signs Temperature 98.1 F 10/20/22 14:06 Pulse Rate 81 10/20/22 14:06 Respiratory Rate 16 10/20/22 14:06 Blood Pressure 116/61 10/20/22 14:06 Puls
== END 2022-10-20 14:50 | disposition home or self-care (01) ==
PROVIDERS: Emergency Provider Nurse Practitioner Family; PCP Family Medicine
DX: B34.9 Viral infection, unspecified (principal); J06.9 Acute upper respiratory infection, unspecified; F17.290 Nicotine dependence, other tobacco product, uncomplicated; M19.90 Unspecified osteoarthritis, unspecified site; F41.9 Anxiety disorder, unspecified; Z86.2 Personal history of diseases of the blood and blood-forming organs and certain disorders involving the immune mechanism
CPT/HCPCS: 87081; 87880; 99213; G0463

== ENCOUNTER 2023-03-08 17:12 | Emergency (ER) | payer OTHER, SELFPAY ==
--- NOTE | 2023-03-08 19:26 | PC.NURSE ---
no answer at triage x2
== END 2023-03-08 19:26 | disposition left against medical advice (07) ==
PROVIDERS: PCP Family Medicine
DX: Z53.21 Procedure and treatment not carried out due to patient leaving prior to being seen by health care provider (principal)
CPT/HCPCS: 99199

== ENCOUNTER 2025-02-26 05:22 | Emergency (ER) | payer MEDICAID, SELFPAY ==
--- OUTSIDE RECORDS SUMMARY | 2025-02-26 05:24 | XMS_ITS | Clinical Summary ---
Author Organization [facility] Address [address] [place] [address] Phone Care Team Providers Care Home Attendant Name Role Phone Priyank Mitchell MD Primary Care Provider Allergies Active Allergy Reactions Criticality Noted Date Comments Latex Rash 03/31/2019 Medications HYDROcodone-weston taminophen (NORCO) 5-325 MG Tablet Take 1 Tab by mouth every 4 hours as needed for Pain. 15 Tab 0 6 Active Additional Information Patient not taking.Reported on 07/17/2019 Multiple Vitamin (MULTIVITAMINS PO) Take 1 Tab by mouth daily. Active traZODone (DESYREL) 100 MG Tablet Take 100 mg by mouth nightly. Active escitalopram (LEXAPRO) 10 MG Tablet Take 10 mg by mouth daily. Active OLANZapine (ZYPREXA) 7.5 MG Tablet Take 7.5 mg by mouth nightly. Active venlafaxine (EFFEXOR-XR) 150 MG CAPSULE SR 24 HR TK 1 C PO QD IN THE JELLY 9 Active naproxen (NAPROSYN) 500 MG Tablet TK 1 T PO BID WC 1 9 Active nicotine (NICODERM CQ) 21 MG/24HR PATCH 24 HR MARCIE 1 PA EXT TO THE SKIN QD FOR 42 DAYS 0 9 Active Norethindrone Acetate 5 MG Tablet TK 1 T PO QD 9 Active Active Problems No known active problems Social History Tobacco Use Types Packs/Day Years Used Date Smoking Tobacco: Light Smoker Cigarettes Smokeless Tobacco: Never Tobacco Cessation:Ready to Q uit: Yes; Counseling Given: Yes Alcohol Use Standard Drinks/Week Comments No 0 (1 standard drink = 0.6 oz pur e alcohol) Comments No Sex and Gender Information Value Date Recorded Sex Assigned at Not on file Legal Sex Female 8:36 PM CDT Gender Identity Not on file Sexual Orientation Not on file Last Filed Vital Signs Vital Sign Reading Time Taken Comments Blood Pressure 104/68 08/23/2019 8:41 AM REVERSAL PRINT INSPECTOR Pulse 72 08/23/2019 8:41 AM REVERSAL PRINT INSPECTOR Temperature 36.4 C (97.6 F) 08/23/2019 8:41 AM REVERSAL PRINT INSPECTOR Respiratory Rate 16 08/23/2019 8:41 AM REVERSAL PRINT INSPECTOR Oxygen Saturation 98% 08/23/2019 8:41 AM REVERSAL PRINT INSPECTOR Inhaled Oxygen Concentration - - Weight 95.3 kg (210 lb 1.6 oz) 08/23/2019 8:41 A M REVERSAL PRINT INSPECTOR Height 157.5 cm (5' 2) 08/23/2019 8:41 AM REVERSAL PRINT INSPECTOR Body Mass Index 38.43 08/23/2019 8:41 AM REVERSAL PRINT INSPECTOR Plan of Treatment Health Maintenance Due Date Last Done Comments Hepatitis C Virus (HCV) Screening 1989 Pap Smear 2010 Cervical Cancer Screening (CCS) 2019 HPV/Cotest 2019 SARS-COV-2 Immunization ( season) 2024 Influenza Immunization (#1) 2025 03/15/2017 Respiratory Syncytial Virus (RSV) Immunization (Adult) (1 - 1-dose 75+ series) 2064 Hepatitis B Immunization Completed 001, 04/25/2000, 03/25/2000 Human Papillomavirus (HPV) Immunization Completed 03/23/2007, 11/16/2006, 09/13/2006 DTaP/Tdap/Td Immunization Discontinued 2016, 08/30/2006, 06/22/2002, Additional history exists TdaP Immunization Completed 03/15/2017, 08/30/2006 Meningococcal Immunization (ACWY) Aged Out No longer eligible based on patient's age to complete this topic Pneumococcal Immunization Combined Aged Out No longer eligible based on patient's age to complete this topic Rotavirus Immunization Aged Out No lo nger eligible based on patient's age to complete this topic Insurance MEDICAID [employer] [facility] Care Teams Home Attendant Relationship Specialty Start Date End Date Priyank Mitchell MD [address] [place] [address] PCP - General Family Medicine 09/02/15
--- OUTSIDE RECORDS SUMMARY | 2025-02-26 05:24 | XMS_ITS | Clinical Summary ---
Author Organization [facility] Address [address] [place] [address] Care Team Providers Care Appliance Fixer Name Role Phone Priyank Mitchell MD Primary Care Provider + Allergies No known active allergies Medications buspirone HCl (BUSPIRONE ORAL) Take 50 mg by mouth 3 times daily. Active nicotine (NICODERM CQ) 21 mg/24 hr patch Apply 1 Patch to skin as directed every 24 hours. Active Active Problems No known active problems Social History Tobacco Use Types Packs/Day Years Used Date Smoking Tobacco: Every Day Cigarettes Smokeless Tobacco: Never Tobacco Cessation:Ready to Q uit: Not Asked; Counseling Given: Not Answered Comments Unknown Sex and Gender Information Value Date Recorded Sex Assigned at Not on file Legal Sex Female 3:36 PM CDT Gender Identity Not on file Sexual Orientation Not on file Last Filed Vital Signs Vital Sign Reading Time Taken Comments Blood Pressure 121/74 07/21/2022 10:58 AM CONTRACTING OFFICER Pulse 69 07/21/2022 10:58 AM CONTRACTING OFFICER Temperature 36.4 C (97.5 F) 07/21/2022 10:58 AM CONTRACTING OFFICER Respiratory Rate 14 07/21/2022 10:58 AM CONTRACTING OFFICER Oxygen Saturation 98% 07/21/2022 10:58 AM CONTRACTING OFFICER Inhaled Oxygen Concentration - - Weight 84.9 kg (187 lb 3.2 oz) 07/21/2022 10:58 AM CONTRACTING OFFICER Height 157.5 cm (5' 2) 04/29/2022 1:42 PM CDT Body Mass Index 34.24 04/29/2022 1:42 PM CDT Plan of Treatment Health Maintenance Due Date Last Done Comments DTAP/TDAP/TD VACCINES (1 - Tdap) 2008 HEPATITIS B VACCINES (1 of 3 - 19+ 3-dose series) 12/2008 HPV/Cotest (21-29) 2010 HPV VACCINES (1 - 3-dose SCDM series) 2016 CERVICAL CANCER SCREENING 2019 HPV/Cotest (30-65) 2019 PAP SMEAR 2019 INFLUENZA VACCINE (#1) 2025 Insurance [facility] MEDICAID Care Teams Appliance Fixer Relationship Specialty Start Date End Date Priyank Mitchell MD [address] [address] PCP - General Family Practice 07/21/22
--- OUTSIDE RECORDS SUMMARY | 2025-02-26 05:24 | XMS_ITS | Encounter Summary ---
Author Organization [facility] Address [address] [place] [address] Care Team Providers Care Best Second Jobs Name Role Phone Priyank Mitchell MD Primary Care Provider [phone] Danielle Haas MD Unavailable Duy Kerr MD Unavailable [phone] Encounter Details Date Type Department Care Team (Late st Contact Info) Description 02/25/2025 Telephone Obstetrics [facility]ne[facility] Clinic [address] [facility] 3rd [address] [place] [address] Tiara Wise Social History Tobacco Use Types Packs/Day Years Used Date Smoking Tobacco: Every Day Cigarettes 0.5 26.6 Started: 1998 Smokeless Tobacco: Never Alcohol Use Standard Drinks/Week Comments Never 0 (1 standard drink = 0.6 oz pur e alcohol) AUDIT-C Answer Date Recorded Q1: How often do you have a drink containing alcohol? Never 04/12/2023 Q2: How many drinks containi ng alcohol do you have on a typical day when you are drinking? Patient does not drink Q3: How often do you have si x or more drinks on one occasion? Never 04/12/2023 Personal Safety Answer Date Recorded Have you ever been in or are you currently in a harmful physical or emotional relationship or is someone making you feel afraid or unsafe? Denies 02/21/2025 Comments Yes Sex and Gender Information Value Date Recorded Sex Assigned at Not on file Legal Sex Female 12:41 PM ASSISTANT ATHLETIC TRAINER Gender Identity Not on file Sexual Orientation Not on file documented as of this encounter Miscellaneous Notes * Telephone Encounter - Lawrence Wisei - 02/25/2025 2:16 PM CDT Pt called asking to be seen for last menstrual cycle 01/18 high risk in past 1 living child stated she needs blood thinners. Preferred pharmacy [facility]. Contact Number [phone] Please forward to KE zimmer unable to add said pool documented in this encounter Plan of Treatment Not on file documented as of this encounter Visit Diagnoses Not on filedocumented in this encounter Care Teams Best Second Jobs Relationship Specialty Start Date End Date Priyank Mitchell MD PCP - General 03/18/17 Danielle Haas MD Surgeon Vascular Surgery 04/07/22 Duy Kerr MD [address] [address] Vacuum Kettle Cook Hematology 03/01/23 documented as of this encounter
[2025-02-26 05:33] VITALS: BP 108/68; PULSE 69; RESP 18; TEMP 36.6; O2SAT 99
[2025-02-26 06:29] LABS: Hematocrit 38.1 % (37.0-47.0); Hemoglobin 12.3 g/dL (12.0-15.0); Immature Granulocyte Percent A 0.6 % (0-0.5); Lymphocytes Absolute Auto 2.22 K/mm3 (0.9-3.2); Mean Corpuscular HGB Conc 32.3 g/dl (32-36); Mean Corpuscular Hemoglobin 30.7 pg (26-34); Mean Corpuscular Volume 95.0 fl (80-100); Nucleated Red Blood Cells Absolute Auto 0.000 K/mm3 (0.0-0.012); Nucleated Red Blood Cells Perc 0.0 % (0.0-0.2); Platelet Count Result 303 k/mm3 (150-375); Red Blood Count 4.01 M/mm3 (4.2-5.4); White Blood Count 11.8 K/mm3 (4.5-10.0)
[2025-02-26 06:49] LABS: Alanine Aminotransferase 18 U/L (6-35); Albumin Level 4.3 g/dL (3.5-5.1); Alkaline Phosphatase 95 U/L (38-126); Anion Gap 9 mmol/L (4-12); Aspartate Amino Transferase 43 U/L (14-36); Bilirubin,Total 0.5 mg/dL (0.2-1.3); Blood Urea Nitrogen 9 mg/dL (7-17); Calcium 9.5 mg/dL (8.4-10.2); Carbon Dioxide 24 mmol/L (22-30); Chloride 105 mmol/L (98-107); Estimated CRCL calculation 115 ml/min; Estimated Glomerular Filt Rate > 60; Glucose 105 mg/dL (65-110); Lipase 17 U/L (23-300); Magnesium 1.9 mg/dL (1.6-2.3); Potassium 3.6 mmol/L (3.4-5.0); Sodium 138 mmol/L (137-145); Total Protein 7.4 g/dL (6.3-8.2)
[2025-02-26 07:00] LABS: Add Urine Microscopic? YES; Appearance Urine Clear (Clear); Beta HCG Quantitative 9532.70 mIU/ML; Glucose Urine UA Negative (Negative); Leukocyte Esterase Ur Trace LEU/UL (Negative); Nitrate Urine Negative (Negative); Non Pathogenic Casts 0-2; Specific Grav Ur 1.004 (1.001-1.035)
--- NOTE | 2025-02-26 07:23 | ED.FEMALEGU ---
HPI - Female Genitourinary General Chief complaint: Vaginal Bleeding Stated complaint: and bleeding Time Seen by Provider: 02/26/25 05:25 History of Present Illness HPI Narrative: Patient is a 34-year-old female who presents to the emergency department this evening complaining of vaginal bleeding. Patient states that she is approximately 5/6 weeks and started spotting. Denies any abdominal pain, states she just has mild cramping. Patient has a history of a miscarriage and has had a healthy daughter at home. States that she has already had an ultrasound for this confirming an intrauterine IUP but was too early to see any heart beats. Patient is currently working on getting established with a new OBGYN as she was referred by her current OB to a high risk control product liability director. Denies any additional symptoms or concerns at this time. Related Data Home Medications ?Medication ?Instructions ?Recorded ?Confirmed ?Last Taken ?Type buspirone 5 mg tablet 5 mg PO DIRECTED PRN Anxiety 04/17/21 05/09/23 09/30/22 History Allergies Allergy/AdvReac Type Severity Reaction Status Date / Time latex Allergy Swelling Verified 05/09/23 16:03 fentanyl AdvReac Other Verified 05/09/23 16:03 Review of Systems Review of Systems: All systems are reviewed and are negative unless stated otherwise in the HPI. 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 Uses anticoagulation with only. Arthritis Hair loss History of UTI Latex allergy History of postoperative complication of surgical procedure Coagulopathy Bipolar disorder Depression Anxiety Surgical History Surgical History History of dilation and curettage Family History Family History Other Arthritis Breast cancer Depression Heart disease Hypertension Lung disease Social History Social History Smoking packs per day: 0.5 Smoking cigarettes per day: 10.0 Years smoked: 10 Smoking pack-years: 5.00 Smoking status: Current every day smoker Tobacco type: e-cigarettes/vaping Alcohol intake: current Alcohol use details: 2/MONTH Substance use: current Substance use type: marijuana Last use: 09-30-22 Living arrangements: with family Additional living arrangements comments: DAUGHTER Spiritual care concerns: No Exam Narrative: General: Alert, awake, afebrile, in no acute distress. HEENT: PERRL, no rhinorrhea, no post nasal drip, oropharynx clear. Neck: Trachea midline, no JVD, no lymphadenopathy. Cardiovascular: Regular rate and rhythm, no murmurs, rubs or gallops, no peripheral edema. Respiratory: Clear to auscultation bilaterally, no tachypnea, no wheezing, no rhonchi, no rubs, no respiratory distress. Abdomen: Soft, nontender, nondistended, no rebound, no guarding, no peritoneal signs. Musculoskeletal: No joint swelling or deformity, normal muscle tone. Skin: No rashes or petechia, no signs of infection. Psychiatric: Alert and oriented, normal behavior and judgment for situation. Neurological: Alert and oriented to person, place, and time. Follows all commands. No focal deficits, speech is clear and fluent. Course Vital Signs Vital signs: Vital Signs Temperature 97.9 F 02/26/25 05:33 Pulse Rate 69 02/26/25 05:33 Respiratory Rate 18 02/26/25 05:33 Blood Pressure 108/68 02/26/25 05:33 Pulse Oximetry 99 02/26/25 05:33 Temperature 97.9 F 02/26/25 05:33 Pulse Rate 69 02/26/25 05:33 Respiratory Rate 18 02/26/25 05:33 Blood Pressure 108/68 02/26/25 05:33 Pulse Oximetry 99 02/26/25 05:33 MDM - Female Genitourinary MDM Narrative Medical decision making narrative: The patient was evaluated by myself in the emergency department. History is obtained from patient who is an independent historian and physical exam was performed. External medical records were reviewed at this time. IV was established and pertinent tests were ordered. Laboratory results obtained revealing acute process. Beta-hCG noted to be 9500. Urinalysis unremarkable. Blood type A positive. Differential diagnosis considerations include threatened miscarriage, normal first-trimester spotting. Comorbidities impacting this visit include none. I have evaluated and discussed social determinants of health with the patient that could potentially impact subsequent diagnosis and treatment plans. On repeat assessment of the patient, reevaluation revealed that the patient is doing well and is in no acute distress. Patient symptoms have improved since she arrived to our emergency department. Repeat vital signs were all reviewed and noted to be stable. Differential diagnosis and treatment plan were discussed with the patient at bedside. Patient agrees with discussion and after shared medical decision making agrees with discharge. All questions were answered to the patient's satisfaction. Patient will follow up with her OBGYN in 2 days for repeat beta-hCG. Patient was provided with strict return precautions and instructed to return to the emergency department if any new or worsening symptoms develop. The patient was discharged in stable condition. Lab Data 02/26/25 05:39 02/26/25 05:39 Labs: Lab Results 02/26/25 Range/Units 05:39 WBC 11.8 H (4.5-10.0) K/mm3 RBC 4.01 L (4.2-5.4) M/mm3 Hgb 12.3 (12.0-15.0) g/dL Hct 38.1 (37.0-47.0) % MCV 95.0 (80-100) fl MCH 30.7 (26-34) pg MCHC 32.3 (32-36) g/dl RDW 13.4 (11.5-14.5) % Plt Count 303 (150-375) k/mm3 MPV 10.0 (7.4-10.4) fl Immature Gran % (Auto) 0.6 H (0-0.5) % Neut % (Auto) 69.6 (45.5-73.1) % Lymph % (Auto) 18.8 (18.3-44.2) % [place] % (Auto) 7.9 (2.6-8.5) % Eos % (Auto) 2.5 (0-4.4) % Baso % (Auto) 0.6 (0.2-1.2) % Lymph # (Auto) 2.22 (0.9-3.2) K/mm3 [place] # (Auto) 0.9 H (0.1-0.6) K/mm3 Eos # (Auto) 0.3 (0-0.3) K/mm3 Baso # (Auto) 0.1 (0.0-0.1) K/mm3 Abs Immat Gran (auto) 0.07 H (0.00-0.031) K/mm3 Absolute Neuts (auto) 8.2 H (1.3-6.7) K/mm3 Absolute Nucleated RBC 0.000 (0.0-0.012) K/mm3 Nucleated RBC % 0.0 (0.0-0.2) % Sodium 138 (137-145) mmol/L Potassium 3.6 (3.4-5.0) mmol/L Chloride 105 (98-107) mmol/L Carbon Dioxide 24 (22-30) mmol/L Anion Gap 9 (4-12) mmol/L BUN 9 (7-17) mg/dL Creatinine 0.62 L (0.7-1.0) mg/dL Estim Creat Clear Calc 115 ml/min Estimated GFR > 60 (59 - ) Glucose 105 (65-110) mg/dL Calcium 9.5 (8.4-10.2) mg/dL Magnesium 1.9 (1.6-2.3) mg/dL Total Bilirubin 0.5 (0.2-1.3) mg/dL AST 43 H (14-36) U/L ALT 18 (6-35) U/L Alkaline Phosphatase 95 (38-126) U/L Total Protein 7.4 (6.3-8.2) g/dL Albumin 4.3 (3.5-5.1) g/dL Lipase 17 L (23-300) U/L Beta HCG, Quant 9532.70 mIU/ML Urine Color Yellow (Yellow) Urine Appearance Clear (Clear) Urine pH 7.0 (5.0-9.0) Ur Specific Silt 1.004 (1.001-1.035) Urine Protein Negative (Negative) mg/dL Urine Glucose (UA) Negative (Negative) mg/dL Urine Ketones Negative (Negative) mg/dL Ur Blood (Man) Negative (Negative) Urine Nitrate Negative (Negative) Urine Bilirubin Negative (Negative) Urine Urobilinogen 0.2 (<2.0) mg/dL Leukocyte Esterase Rfl Trace H (Negative) ALEXANDER/UL Urine RBC 0-2 (0-2) /hpf Urine WBC 0-5 (0-3) /hpf Ur Squamous Epith Cells Few (Few) /hpf Urine Bacteria Rare /hpf Urine Casts 0-2 Blood Type A Positive Antibody Screen Pending Screen Pending Baby's Blood Type Pending Baby's RAMÓN Pending Doses of RhIg Required Pending Discharge Plan Discharge Clinical Impression: Threatened miscarriage Patient Disposition: Home Condition: Improved Instructions: Antibiotic Form, Threatened Miscarriage (ED) Additional Instructions: Please follow-up with your OBGYN within the next 2 days for repeat beta-hCG for your threatened miscarriage. Return to the ED if any new or worsening symptoms develop. Patient Language: Frisian Prescriptions: No Action buspirone 5 mg tablet 5 mg PO DIRECTED PRN (Reason: Anxiety) celecoxib [Celebrex] 400 mg capsule 400 mg PO DAILY Qty: 30 0RF Follow-up/Referrals: Zach Etienne MD [Physician, [facility]] - 2 Days Stephen,Priyank Cohen MD [Primary Care Provider] Time of Disposition: 07:28
[2025-02-26 07:35] VITALS: BP 112/70; PULSE 80; RESP 16; TEMP 36.6; O2SAT 100
== END 2025-02-26 07:50 | disposition home or self-care (01) ==
PROVIDERS: Emergency Provider Emergency Medicine; PCP Family Medicine
DX: O20.0 Threatened abortion (principal); Z3A.00 Weeks of gestation of pregnancy not specified; O99.341 Other mental disorders complicating pregnancy, first trimester; O99.331 Smoking (tobacco) complicating pregnancy, first trimester; F32.A Depression, unspecified; F17.290 Nicotine dependence, other tobacco product, uncomplicated
CPT/HCPCS: 36415; 80053; 81001; 83690; 83735; 84702; 85025; 85461; 86850; 86900; 86901; 99283

== ENCOUNTER 2025-03-19 15:47 | Emergency (ER) | payer MEDICAID, SELFPAY ==
--- NOTE | ~2025-03-19 | US_ITS ---
EXAM/PROCEDURE: US OB <= 14 weeks fetus - 03/19/2025 17:00 CDT HISTORY: 34 years old Female with trauma to abdomen, 8 weeks COMPARISON: None available. TECHNIQUE: Multiple transvaginal images were obtained. FINdINGS: There is a single, live, intrauterine gestation with a heart rate of 158 bpm. The crown-rump length is 2.14 mm, which is equivalent to a 8 week, 5 day gestation. This gives an estimated date of delivery of 10/24/2025. An unremarkable yolk sac is seen. The gestational sac is unremarkable. There is no myometrial abnormality. The ovaries appear unremarkable. No significant free fluid is seen. IMPRESSION: Single live embryo with estimated date of delivery of 10/24/25. Reviewed, dictated and finalized at location N.
[2025-03-19 16:02] VITALS: BP 118/63; PULSE 83; RESP 14; TEMP 36.7; O2SAT 100
--- OUTSIDE RECORDS SUMMARY | 2025-03-19 16:46 | XMS_ITS | Clinical Summary ---
Author Organization [facility] Address [address] [place] [address] Care Team Providers Care Online Marketing Analyst Name Role Phone Priyank Mitchell MD Primary Care Provider [phone] Danielle Haas MD Unavailable Duy Kerr MD Unavailable [phone] Allergies Active Allergy Reactions Criticality Noted Date Comments Fentanyl Seizures,Vomiting High 02/25/2023 Lamotrigine Rash Medium 04/09/2023 Latex Rash Medium 03/31/2019 Famotidine Vomiting Low 05/11/2024 Medications montelukast (SINGULAIR) 10 mg tablet Take 1 tablet (10 mg total) by mouth nightly 3 Active omeprazole (PriLOSEC) 20 mg capsule Take 1 capsule (20 mg total) by mouth nightly 3 Active OLANZapine (ZyPREXA) 7.5 mg tablet Take 1 tablet (7.5 mg total) by mouth nightly Active albuterol HFA (PROVENTIL HFA,VENTOLIN HFA,PROAIR HFA) 90 mcg/actuation inhaler INHALE 2 PUFFS EVERY 4 HOURS BY INHALATION ROUTE NEEDED 3 Active erythromycin (ILOTYCIN) ophthalmic ointment APPLY 1 CM RIBBON IN LEFT EYE UP TO 6 TIMES/DAY FOR 10 DAYS. 3 Active hydrOXYzine (VISTARIL) 25 mg capsule TAKE 1 CAPSULE (25MG) BY ORAL ROUTE 2 TIMES EVERY DAY NEEDED FOR PANIC, ANGER, AND ANXIETY. 3 Active tretinoin (RETIN-A) 0.05 % cream Apply to AA of face QHS 45 g 11 3 Active simethicone (GAS-X) 180 mg capsule Take 1 capsule (180 mg total) by mouth every 6 (six) hours as needed for flatulence (bloating) 30 capsule 3 Active acetaminophen (TYLENOL) 500 mg tablet Take 1 tablet (500 mg total) by mouth every 6 (six) hours as needed for pain 30 tablet 3 Active famotidine (PEPCID) 10 mg tablet Take 1 tablet (10 mg total) by mouth 2 (two) times a day Active PNV no.153/FA/om3/ dha/epa/fish ( GUMMIES ORAL) Take 1 tablet by mouth daily Active doxylamine (UNISOM) 25 mg tablet Take 1 tablet (25 mg total) by mouth nightly as needed for sleep 30 tablet 3 5 Active enoxaparin (LOVENOX) 40 mg/0.4 mL syringe Inject 0.4 mL (40 mg total) under the skin daily 36 mL 5 Active FLUoxetine (PROzac) 10 mg tablet/capsule Take 1 tablet/capsule (10 mg total) by mouth daily 30 tablet/capsu le 5 03/13/20 26 Active PNV with irohmbo-sosj-H A ( Vitamin Plus Low Iron) 27 mg iron- 1 mg tablet Take 1 tablet by mouth daily 30 tablet 5 03/13/20 26 Active pyridoxine (VITAMIN B6) 25 mg tablet Take 1 tablet (25 mg total) by mouth daily 30 tablet 5 03/13/20 26 Active ibuprofen (ADVIL,MOTRIN) 400 mg tablet Take 1 tablet (400 mg total) by mouth every 6 (six) hours as needed for pain 3 03/01/20 25 Discontinu ed(Stop Taking at Discharge) doxylamine (UNISOM) 25 mg tablet Take 1 tablet (25 mg total) by mouth nightly as needed for sleep 30 tablet 3 5 03/13/20 25 Discontinu ed(Reorder ) pyridoxine (VITAMIN B6) 25 mg tablet Take 1 tablet (25 mg total) by mouth daily 30 tablet 5 03/13/20 25 Discontinu ed(Reorder ) PNV with nmxkljo-lozl-F A ( Vitamin Plus Low Iron) 27 mg iron- 1 mg tablet Take 1 tablet by mouth daily 30 tablet 11 5 03/13/20 25 Discontinu ed(Reorder ) enoxaparin (LOVENOX) 40 mg/0.4 mL syringe Inject 0.4 mL (40 mg total) under the skin daily 36 mL 3 5 03/13/20 25 Discontinu ed(Reorder ) FLUoxetine (PROzac) 10 mg tablet/capsule Take 1 tablet/capsule (10 mg total) by mouth daily 30 tablet/capsu le 03/13/20 Discontinu ed(Reorder ) Active Problems Problem Noted Date Diagnosed Date HROB:Anxiety/depression 03/12/2025 Overview (03/12/2025): Counseling 03/12/2025: Anxiety disorders affect 1 in 5 patients and can cause significant functional impairment. Patients with under treated anxiety have a higher risk of depression. They also have a higher risk of , low weight, and behavioral challenges in offspring. Regular follow-up with a mental health provider is recommended throughout and . 03/12:Patient not currently on medication but wishes to restart prior Prozac. Baseline EPDS 11. Current regimen: Prozac 10mg (started 03/12/25) Plan: [] Continue above medication regimen [] EPDS qVisit [] Monitor mood throughout and period [] Referral placed to [facility] HROB: Supervision of high-risk , first trimester 03/08/2025 Overview (03/15/2025): 1st Trimester: [x] Dating Criteria: L=1 [x] Labs: Rh pos, Ab neg, CBC Hgb 12.8, Rubella Imm, VZV Imm, HIV NR, RPR NR, HepBSAg NR, Hep C Ab NR [x] GC/CT/Trich: neg x3 [x] UCx: CIG [x] vitamins [] Genetic Screening: desires at next visit [] CF/SMA carrier screening: ordered 03/12 [x] Hgb electrophoresis: wnl [] Pap: address at next visit [] EPDS: PNBHS referral (if indicated) [] ASA at 12 weeks (if indicated) [x] DM screening: HgbA1c 5.3% [] Feeding Preferences: benefits of discussed with patient at RN IOB 2nd Trimester: [] Anatomy ultrasound: [] CBC: [] 1hr GTT (24-28wks): [] Flu Shot (Mar-Jun): [] Tdap (27-36wks): [] Rhogam (if Rh neg): [] Childbirth classes discussed [] education (colostrum, expected breast changes, plan for RTW) and breast pump ordered [] Second trimester education packet 3rd Trimester: [] CBC/HIV/RPR/T&S: [] GBS: [] GC/CT/Trich (if indicated): [] RSV vaccine [] Final discussion (S2S, Baby Friendly, LC Support, PP experience) [] Third trimester education packet Last visit: [] Last clinic visit SVE: [] IOL start agent: [] Epidural: [] Consents signed: Counseling: [] Method of delivery: [] Bottle of CHG 4% and hand out provided @ 36wks (if planned) [] Timing of delivery: [] MOC: [] MOF: [] COVID-19 vaccine counseling [] education: completed in all 3 trimesters [] Memory Care Program Director: [] Car seat discussed [] PP depression counseling HROB: Severe obesity due to excess calories affecting in second trimester 03/08/2025 Overview (03/12/2025): Pre- BMI: 38 Counseling 03/12/2025: Obesity in (BMI >30) is associated with increased risks. Maternal risks include higher rates of preeclampsia, gestational diabetes, and section due to labor abnormalities. risks include anomalies, growth abnormalities ( growth restriction and macrosomia), and stillbirth. Maternal BMI can impact the ability to monitor the heart rate comprehensively during labor and delivery. Recommended weight gain is a total of 11-20 lbs, with 1-4 lbs in the 1st trimester and 0.5 lb/week in the 2nd and 3rd trimesters. Plan: [] Low dose ASA starting at 12 weeks [] Early overt diabetes screening with HgbA1C - ordered [] Specialized anatomic survey at 18-22 weeks [] Consider growth ultrasounds every 4 weeks starting at 28 weeks [] 3rd trimester anesthesia consultation if BMI >/=50 [] Weekly testing at 34 weeks (BMI >/=40) and 37 weeks (BMI 35.0-39.9) [] If BMI >/=50, confirm candidacy for delivery at local hospital and confirm location of delivery Varicose veins of lower extr emity with ulcer limited to breakdown of skin 02/24/2023 Varicose veins of lower extr emities with complications, right 08/19/2022 HROB: Prothrombin gene mutation 04/08/2022 Overview (03/12/2025): History: - Diagnosed with prothrombin gene heterozygous mutation in 2010 following D&C - Reports she was on lovenox during G1 - No personal history of VTE Prior thrombophilia workup: (per hematology notes, records not available to review) - Lupus anticoagulant: negative - Anticardiolipin Ab: negative - Protein C/S: normal - Factor V Leiden: negative Counseling 03/12/25: With the thrombophilia history of Prothrombin gene heterozygote, there is a 0.4-2.6% with no history of VTE and >10% with a prior VTE risk of VTE in . With the VTE history of Low-risk thrombophilia (FVL heterozygote, prothrombin heterozygotes, protein C or S deficiency, APS antibody) without previous VTE, antepartum management includes surveillance without anticoagulation therapy. management includes surveillance without anticoagulation therapy or prophylactic anticoagulation therapy if the patient has multiple risk factors. Patient reports having been on Lovenox during her prior and strongly desires to be on anticoagulation during this . Reviewed that there is no indication but she also does not have a contraindication Current regimen: Lovenox 40mg daily Plan: [] Consider reestablishing care with Hematology during [] Continue surveillance with prophylactic Lovenox [] if epidural received, wait 12 hours after placement and 4 hours after removal to restart prophylactic lovenox and 24 hours after placement and 4 hours after removal for adjusted-dose lovenox. Additionally, it is recommended to restart 4-6 hours after a vaginal delivery or 6-12 hours after a delivery. Symptomatic varicose veins, left 04/07/2022 Estimated Date of Delivery Comme nts Yes 10/25/2025 Based on last me nstrual period of 01/18/2025 Encounters Date Type Department Care Team Description 03/14/2025 Telephone [facility] [address] [place] [address] Floor [address] [place] [phone] Jo Murillo RN 03/14/2025 Telephone [facility] [address] [place] [address] Floor [address] [place] [phone] Karlos eBnítez 03/13/2025 Telephone [facility] [address] [place] [address] Floor [address] [place] [phone] Karlos Benítez 03/13/2025 Orders Only [facility] [address] [place] [address] Floor [address] [place] [phone] Luann Martinez RN 03/13/2025 Telephone [facility] [address] [place] [address] Floor [address] [place] [phone] Karlos Benítez 03/12/2025 11:30 AM CDT Initial [facility] Clinic [address] [place] [address] [place] [phone] GA: 7w4d 03/12/2025 11:00 AM CDT - 03/12/2025 11:59 PM CDT Hospital Encounter [facility] - Ultrasound [address] [place] [phone] Intrauterine Discharge Disposition: Discharge to home or self care 03/01/2025 1:28 PM CDT - 03/01/2025 4:30 PM CDT Hospital Encounter [address] [phone] Becky Bowens MD Discharge Disposition: Discharge to home or self care 03/01/2025 Telephone [facility] [address] [place] [address] Floor [address] [place] [phone] Jo Murillo RN 03/01/2025 Telephone [facility] [address] [place] [address] Outpatient Health 3rd Floor [address] [place] [phone] Margarita Sarkar LPN 02/28/2025 Telephone [facility] [address] [place] [address] 3rd Floor [address] [place] [phone] Noelle Gurrola RN 02/27/2025 5:49 AM CDT - 02/27/2025 8:44 AM CDT Emergency [facility] Emergency Department [address] [place] [phone] Denny Richardson MD Guess, MD Lily Lozaad, Zulay Rock MD Intrauterine (Primary Dx); Vaginal bleeding; Prothrombin gene mutation Discharge Disposition: Discharge to home or self care 02/27/2025 Nurse Triage [address] [phone] Barbra Castrejon patty 02/25/2025 Telephone [facility] [address] [place] [address] Floor [address] [place] [phone] Tiara Wise 02/21/2025 9:04 AM CDT - 02/21/2025 1:15 PM CDT Emergency [facility] Emergency Department [address] [place] [address] Andrez Skinner MD First trimester (Primary Dx) Discharge Disposition: Discharge to home or self care 02/19/2025 2:37 PM CDT - 02/19/2025 4:17 PM CDT Emergency [facility] Emergency Department [address] [place] [address] Discharge Disposition: Left without being seen from Last 3 Months Immunizations Immunization Administration Dates Next Due DTP 02/19/1995, 2,01/19/1991,03/17,1989 HPV, Quadrivalent 03/23/2007,11/16/2006,09/14/19 07 Hep A, Pediatric 08/30/2006,10/08/2004 Hep B, Adolescent or Pediatric 08/26/2000,1999,03/25/2000 HiB 02/09/1994 Influenza, Quadrivalent, Spl it, Intramuscular 03/15/2017 MMR 02/19/1995,11/17/1990 Meningococcal C Conjugate 08/30/2006 OPV 02/19/1995, 2,01/19/1991,03/17,1989 Td, adsorbed 06/22/2002 Tdap 03/15/2017,08/30/2006 Surgical History Surgery Date Site/Laterality Comments DILATION AND CURETTAGE OF UTERUS 07/04/2010 - 07/03/2011 secondary to spontaneous DILATION AND CURETTAGE OF UTERUS ANTERIOR CRUCIATE LIGAMENT REPAIR Right September 2022 Medical History Medical History Date Comments Depression Acid reflux Prothrombin [id number] mutation Back pain Family History Medical History Relation Name Comments Anesthesia problems Neg Hx Social History Tobacco Use Types Packs/Day Years Used Date Smoking Tobacco: Every Day Cigarettes 0.5 26.7 Started: 1998 Vaping Smokeless Tobacco: Never Comments:03/12: only using vap e, trying to cut back Alcohol Use Standard Drinks/Week Comments Never 0 (1 standard drink = 0.6 oz pur e alcohol) AUDIT-C Answer Date Recorded Q1: How often do you have a drink containing alcohol? Never 03/01/2025 Q2: How many drinks containi ng alcohol do you have on a typical day when you are drinking? Patient does not drink Q3: How often do you have si x or more drinks on one occasion? Never 03/01/2025 Hunger Vital Sign Answer Date Recorded Within the past 12 months, y ou worried that your food would run out before you got the money to buy more. Never true 03/12/20 25 Within the past 12 months, t he food you bought just didn't last and you didn't have money to get more. Never true 03/12/2025 Ashby Depression Scale Answer Date Recorded Ashby Depression Scale Total 11 03/12/2025 The thought of harming myself has occurred to me . Never 03/12/2025 Personal Safety Answer Date Recorded Have you ever been in or are you currently in a harmful physical or emotional relationship or is someone making you feel afraid or unsafe? 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 Gender Identity Not on file Sexual Orientation Not on file Obstetrics History Para Term AB IAB SAB Ectopic Multiple Livin g Live Births 3 1 1 0 1 1 1 Date Outcome GA Total Labor Labor/2nd/3rd Weight Sex Type Anes PTL Tiffany A1 A5 Name Clin Term AB Current Summary Episode Dates Number of Fetuses Estimated Date of Delivery 03/01/2025 - Present (03/19/2025) 10/25/2025 (set by Zuleyka Grimm i, MD on 03/12/2025 based on Last Menstrual Period on 01/18/2025) Dating Summary Based On JOSEPH GA Diff Last Menstrual Period on 01/18/2025 10/25/2025 Working Ultrasound on 03/12/2025 10/25/2025 Same GA:7w4d Vitals Pregravid Weight Height TWG (As of 03/19/2025) Pregrav id BMI 157.5 cm (5' 2) Date GA Fund Present FHR Mvmt BP Weight Edema Alb Glu Ket Dil/ Eff/Sta 5 6w0d Inpatient data not displayed here. See encounter summary. 7w4d Inpatient data not displayed here. See encounter summary. Notes Progress Notes - Orders Only - 03/13/2025 - GA:7w5d 03/13/2025 - 7w5d - Luann Martinez RN Rx resent with approved provider. Progress Notes - Initial Pre brett - 03/12/2025 - GA:7w4d 03/12/2025 - 7w4d - Zuleyka Roe MD Initial HROB Visit Date of Visit: 03/12/2025 1:22 PM Author: Zuleyka Simpson MD Referring Provider: Dania Gloria, * Laly Afsaneh Diehl is a 34 y.o. at 7w4d by L=1 who desires establishment of care for her . Her is currently complicated by: #prothrombin [id number] heterozygous mutation #BMI 38 #Anxiety/Depression/Bipolar disorder Reports she is doing well, was very nervous for her ultrasound today but glad everything looks good. Has been taking PNV. No further spotting since she was last seen in [facility] on 03/01. Patient Active Problem List Diagnosis Symptomatic varicose veins, left HROB: Prothrombin gene mutation Varicose veins of lower extremities with complications, right Varicose veins of lower extremity with ulcer limited to breakdown of skin ([facility]) HROB: Supervision of high-risk , first trimester HROB: Severe obesity due to excess calories affecting in second trimester ([facility]) HROB:Anxiety/depression Morning sickness? yes movement? no Leakage of fluid? no Vaginal bleeding? Had spotting 2 weeks ago Contractions? no FOB not involved Planned ? no Desired ? yes Taking ? yes Taking other meds not yet cleared by OB? no Cats in household? no Job with chemical exposure? no Xrays in ? no Dating: Working Criteria: L=1 Patient's last menstrual period was 01/18/2025. =>, JOSEPH: 10/25/24 US Date: 03/12/25, Gest Age 7w4d => JOSEPH 10/25/24 Obstetric History: OB History Para Term AB Living 3 1 1 0 1 1 SAB IAB Ectopic Multiple Live Births 1 # Outcome Date GA Lbr Miguel/2nd Weight Sex Type Anes PTL Lv 3 Current 2 AB 1 Term Genetic History: [-] Mother's Age > 34 years [-] Sickle Cell Disease or Trait () [-] Thalasemia (Micronesian, Azeri, Medit or ; MCV <80) [-] Jonas Sachs Disease (Anabaptist, Cajun, Syriac [place]) [-] Down's Syndrome [-] Neural Tube Defects (Meningomyelocele, Spina Bifida or Anencephaly) [-] Other Developmental Delay [-] Cystic Fibrosis [-] Dilip's Chorea [-] Muscular Dystrophy [-] Hemophilia [-] Other Heritable condition Medical History: Past Medical History: Diagnosis Date Acid reflux Back pain Depression Prothrombin [id number] mutation Allergies Allergen Reactions Fentanyl Seizures and Vomiting Lamotrigine Rash Latex Rash Pepcid [Famotidine] Vomiting Surgical History: Past Surgical History: Procedure Laterality Date ANTERIOR CRUCIATE LIGAMENT REPAIR Right September 2022 DILATION AND CURETTAGE OF UTERUS 2010 secondary to spontaneous DILATION AND CURETTAGE OF UTERUS Family History: Family History Problem Relation Age of Onset Anesthesia problems Neg Hx Social History: Social History Social History Narrative Not on file Physical Exam: Vitals: BP 116/68 (Patient Position: Sitting) Pulse 72 Wt 208 lb 4.8 oz (94.5 kg) LMP 01/18/2025 SpO2 100% BMI 38.10 kg/m General: Well appearing, pleasant female in NAD HEENT: Normocephalic, normal extraocular movements Neck: No thyromegaly or masses Heart: Regular rate and rhythm, no murmurs/gallops/rubs apprecaited Lungs: Clear to auscultation bilaterally, no wheeze or crackles Breasts: Deferred Abdomen: Soft, non-tender, non-distended Extremities: Warm and well perfused, non-tender, no lower extremity edema Labs: ordered Assessment and Plan: Laly Diehl is a 34 y.o. at 7w4d by with complicated by: Problem List HROB: Prothrombin gene mutation Overview History: - Diagnosed with prothrombin gene heterozygous mutation in 2010 following D&C - Reports she was on lovenox during G1 - No personal history of VTE Prior thrombophilia workup: (per hematology notes, records not available to review) - Lupus anticoagulant: negative - Anticardiolipin Ab: negative - Protein C/S: normal - Factor V Leiden: negative Counseling 03/12/25: With the thrombophilia history of Prothrombin gene heterozygote, there is a 0.4-2.6% with no history of VTE and >10% with a prior VTE risk of VTE in . With the VTE history of Low-risk thrombophilia (FVL heterozygote, prothrombin heterozygotes, protein C or S deficiency, APS antibody) without previous VTE, antepartum management includes surveillance without anticoagulation therapy. management includes surveillance without anticoagulation therapy or prophylactic anticoagulation therapy if the patient has multiple risk factors. Patient reports having been on Lovenox during her prior and strongly desires to be on anticoagulation during this . Reviewed that there is no indication but she also does not have a contraindication Current regimen: Lovenox 40mg daily Plan: [] Consider reestablishing care with Hematology during [] Continue surveillance with prophylactic Lovenox [] if epidural received, wait 12 hours after placement and 4 hours after removal to restart prophylactic lovenox and 24 hours after placement and 4 hours after removal for adjusted-dose lovenox. Additionally, it is recommended to restart 4-6 hours after a vaginal delivery or 6-12 hours after a delivery. HROB: Supervision of high-risk , first trimester - Primary Overview 1st Trimester: [x] Dating Criteria: L=1 [] Labs: Rh *, Ab *, CBC Hgb 12.8, Rubella *, VZV *, HIV *, RPR *, HepBSAg *, Hep C Ab * [x] GC/CT/Trich: neg x3 [] UCx: ordered 03/12 [x] vitamins [] Genetic Screening: desires, at next visit [] CF/SMA carrier screening: ordered 03/12 [] Hgb electrophoresis: [] Pap: address at next visit [] EPDS: PNBHS referral (if indicated) [] ASA at 12 weeks (if indicated) [] DM screening: HgbA1c * (<5.7: no further test until 2T screen, 5.7-6.5: obtain 2h GTT, >6.5: refer to CDP) [] Feeding Preferences: benefits of discussed with patient at RN IOB 2nd Trimester: [] Anatomy ultrasound: [] CBC: [] 1hr GTT (24-28wks): [] Flu Shot (Mar-Jun): [] Tdap (27-36wks): [] Rhogam (if Rh neg): [] Childbirth classes discussed [] education (colostrum, expected breast changes, plan for RTW) and breast pump ordered [] Second trimester education packet 3rd Trimester: [] CBC/HIV/RPR/T&S: [] GBS: [] GC/CT/Trich (if indicated): [] RSV vaccine [] Final discussion (S2S, Baby Friendly, LC Support, PP experience) [] Third trimester education packet Last visit: [] Last clinic visit SVE: [] IOL start agent: [] Epidural: [] Consents signed: Counseling: [] Method of delivery: [] Bottle of CHG 4% and hand out provided @ 36wks (if planned) [] Timing of delivery: [] MOC: [] MOF: [] COVID-19 vaccine counseling [] education: completed in all 3 trimesters [] Memory Care Program Director: [] Car seat discussed [] PP depression counseling Relevant Orders Type and screen CBC without differential Rubella IgG antibody Blood Varicella Zoster IgG antibody Blood HIV 1/2 Antibody plus p24 Antigen Blood RPR Blood Hepatitis B Surface Antigen Blood Hepatitis C antibody Blood Urine culture Urine, clean voided Hemoglobin analysis by electrophoresis Hemoglobin A1c HROB: Severe obesity due to excess calories affecting in second trimester (HCC) Overview Pre- BMI: 38 Counseling 03/12/2025: Obesity in (BMI >30) is associated with increased risks. Maternal risks include higher rates of preeclampsia, gestational diabetes, and section due to labor abnormalities. risks include anomalies, growth abnormalities ( growth restriction and macrosomia), and stillbirth. Maternal BMI can impact the ability to monitor the heart rate comprehensively during labor and delivery. Recommended weight gain is a total of 11-20 lbs, with 1-4 lbs in the 1st trimester and 0.5 lb/week in the 2nd and 3rd trimesters. Plan: [] Low dose ASA starting at 12 weeks [] Early overt diabetes screening with HgbA1C - ordered [] Specialized anatomic survey at 18-22 weeks [] Consider growth ultrasounds every 4 weeks starting at 28 weeks [] 3rd trimester anesthesia consultation if BMI >/=50 [] Weekly testing at 34 weeks (BMI >/=40) and 37 weeks (BMI 35.0-39.9) [] If BMI >/=50, confirm candidacy for delivery at local hospital and confirm location of delivery HROB:Anxiety/depression Overview Counseling 03/12/2025: Anxiety disorders affect 1 in 5 patients and can cause significant functional impairment. Patients with under treated anxiety have a higher risk of depression. They also have a higher risk of , low weight, and behavioral challenges in offspring. Regular follow-up with a mental health provider is recommended throughout and . 03/12:Patient not currently on medication but wishes to restart prior Prozac. Baseline EPDS 11. Current regimen: Prozac 10mg (started 03/12/25) Plan: [] Continue above medication regimen [] EPDS qVisit [] Monitor mood throughout and period [] Referral placed to HS Relevant Medications doxylamine (UNISOM) 25 mg tablet FLUoxetine (PROzac) 10 mg tablet/capsule Reviewed what to expect from visits and schedule, SAB precautions, where to call, diet and exercise with expected weight gain, medications, and smoking/EtOH. Next US: anatomy US monitoring: N/A RTC in 4 weeks The patient was seen and discussed with Dr. Pendleton and Dr. Sera Simpson MD Obstetrics and Gynecology PGY-4 MFM Fellow Attestation I have seen and discussed Laly Diehl with the resident, Dr. Simpson on 03/12/2025. I have evaluated the patient and reviewed the treatment plan and recommendations. I agree with the findings and the plan of care as documented in the resident s note with the following addendum: Briefly, this is a 34 y.o. at 7w4d with complicated by prothrombin [id number] heterozygous mutation, BMI 38, and anxiety/depression/possible bipolar disorder. Excited about cardiac activity seen on BSUS today. Reports use of prophylactic lovenox in last for heterozygous prothrombin mutation. Discussed that best available data suggest surveillance is appropriate, however, patient strongly desires to continue prophylactic lovenox. Engaged in shared decision making discussing risks. Continue lovenox 40mg daily with low threshold to discontinue if bleeding episode occurs. She is aware of risk of delayed neuraxial anesthesia and hemorrhage in the event of an unplanned delivery. labs and carrier screening ordered today. NIPT to be completed at next visit. Patient reports tolerating Prozac and desires to restart. Continue to closely monitor mood. RTC in 4 weeks. Vanita Pendleton MD Maternal- Medicine Fellow Cosigned by Melinda Odom MD at 03/13/2025 12:05 PM CDT Associated attestation - Melinda Odom MD - 03/13/2025 12:05 PM CDT I have seen and examined the patient. I agree with the findings and plan of care as documented in the resident/fellow's note. Melinda Odom MD Last Filed Vital Signs Vital Sign Reading Time Taken Comments Blood Pressure 116/68 03/12/2025 12:02 PM CDT Pulse 72 03/12/2025 12:02 PM CDT Temperature 36.4 C (97.5 F) 03/01/2025 1:35 PM CDT Respiratory Rate 18 03/01/2025 1:35 PM CDT Oxygen Saturation 100% 03/12/2025 12:02 PM CDT Inhaled Oxygen Concentration - - Weight 94.5 kg (208 lb 4.8 oz) 03/12/2025 12:02 PM CDT Height 157.5 cm (5' 2) 03/01/2025 1:45 PM CDT Body Mass Index 38.1 03/01/2025 1:45 PM CDT Plan of Treatment Upcoming Encounters Date Type Department Care Team (Late st Contact Info) Description 10/25/2025 Hospital Encounter [address] [id number] Becky Bowens MD [address] [place] [address] Health Maintenance Due Date Last Done Comments Cervical Cancer Screening 1989 Varicella Vaccines (1 of 2 - 13+ 2-dose series) 2002 Regular Well Visit/Exam 18-64 2007 Pneumococcal vaccine <65 (1 of 2 - PCV) 2008 Influenza Vaccine (#1) 2025 03/15/2017 Depression Screening 03/12/2026 03/12/2025 DTaP/Tdap/Td Vaccine (8 - Td or Tdap) 03/15/2027 03/15/2017, 08/30/2006, 06/22/2002, Additional history exists Hepatitis B Screening Completed 08/26/2000 , 04/25/2000, 03/25/2000 HPV Vaccines Completed 03/23/2007, 11/01, 09/13/2006 Hepatitis C Screening Completed 03/12/2025 Procedures Procedure Name Priority Date/Time Associated Diagnosis Comments TYPE AND SCREEN Routine 03/12/2025 1:12 PM CDT HROB: Supervision of high-risk , first trimester CBC WITHOUT DIFFERENTIAL Routine 03/12/2025 1:06 PM CDT HROB: Supervision of high-risk , first trimester HEMOGLOBIN ANALYSIS BY ELECTROPHORESIS Routine 03/12/2025 1:06 PM CDT HROB: Supervision of high-risk , first trimester HEMOGLOBIN A1C Routine 03/12/2025 1:06 PM CDT HROB: Supervision of high-risk , first trimester RUBELLA IGG Routine 03/12/2025 1:06 PM CDT HROB: Supervision of high-risk , first trimester VARICELLA ZOSTER ANTIBODY, IGG Routine 03/12/2025 1:06 PM CDT HROB: Supervision of high-risk , first trimester HIV 1/2 ANTIBODY PLUS P24 ANTIGEN Routine 03/12/2025 1:06 PM CDT HROB: Supervision of high-risk , first trimester RPR Routine 03/12/2025 1:06 PM CDT HROB: Supervision of high-risk , first trimester HEPATITIS B SURFACE ANTIGEN Routine 03/12/2025 1:06 PM CDT HROB: Supervision of high-risk , first trimester HEPATITIS C ANTIBODY Routine 03/12/2025 1:06 PM CDT HROB: Supervision of high-risk , first trimester URINE CULTURE Routine 03/12/2025 12:48 PM CDT HROB: Supervision of high-risk , first trimester US OB LIMITED W ENDOVAG Schedule Routine, Read Routine (OP Routine) 03/12/2025 11:10 AM CDT Intrauterine URINALYSIS AND REFLEX TO MICROSCOPIC AND CULTURE Routine 03/01/2025 4:23 PM CDT N. GONORRHOEAE/C. TRACHOMATIS AMPLIFICATION Routine 03/01/2025 3:42 PM CDT TRICHOMONAS VAGINALIS PCR Routine 03/01/2025 3:42 PM CDT POCUS FEMALE TVUS, 02/27/2025 7:03 AM CDT POCUS FEMALE TAB PELVIC, NON- 02/27/2025 6:27 AM CDT POCT HCG, URINE Routine 02/27/2025 5:55 AM CDT DIFFERENTIAL AUTO STAT 02/27/2025 5:0 8 AM CDT ABO/RH STAT 02/27/2025 5:08 AM CDT HCG, BLOOD, QUANTITATIVE STAT 02/27/2025 5:08 AM CDT CBC WITH AUTO DIFFERENTIAL STAT 02/27/2025 5:08 AM CDT US OB UNDER 14 WEEKS ED 02/21/2025 11:46 AM CDT EGFR STAT 02/21/2025 9:22 AM CDT HCG, BLOOD, QUANTITATIVE STAT 02/21/2025 9:22 AM CDT BASIC METABOLIC PANEL STAT 02/21/2025 9:22 AM CDT CBC WITHOUT DIFFERENTIAL STAT 02/21/2025 9:22 AM CDT POCT HCG, URINE Routine 02/19/2025 3:34 PM CDT from Last 3 Months Results * Type and screen (03/12/2025 1:12 PM CDT) Pathologist [facility] Bob, indirect Negative ABO Rh A Positive [facility] Blood 03/12/2025 1:12 PM CDT 03/12/2025 3:04 PM CDT Narrative [facility] - 03/12/2025 4:11 PM CDT Has the patient had Daratumumab or Isatuximab in the past 6 months?->Unknown Vidal Mcdaniels MD LAB BLOOD BANK TEST ORDE RABLES Final Result Performing Organization Address City/[facility]/ZIP Co de Phone Number [facility] Department [place] [employer] [address] * HIV 1/2 Antibody plus p24 Antigen Blood (03/12/2025 1:06 PM CDT) Pathologist [facility] HIV 1/2 ab + p24 ag Nonreactive Nonreactive Comment:Nonreactive for HIV- 1 antigen and HIV-1/HIV-2 antibodies. No laboratory evidence of HIV infection. If acute HIV infection is suspected, consider testing for HIV-1 RNA. Current interpretive data was last revised on 22. Blood 03/12/2025 1:06 PM CDT 03/12/2025 2:41 PM CDT Vidal Mcdaniels MD LAB MICROBIOLOGY - GENER AL ORDERABLES Final Result [facility] Department [place] [employer] [address] * Hemoglobin analysis by electrophoresis (03/12/2025 1:06 PM CDT) [facility] RBC 4.12 3.90 - 5.20 M/cumm Hgb 13.1 11.9 - 15.5 g/dL [facility] MCV 91.0 81.3 - 96.4 fL [facility] Rdw 13.5 11.1 - 14.9 % [facility] Hgb electrophoresis , interp Please see comment [facility] Comment: Normal hemoglobin pattern for age Reviewed and signed by Yong Cobian MD 03/14/2025 Hgb A 96.9 96.0 - 98.5 % [facility] Hgb A2 2.5 1.5 - 3.2 % [facility] Hgb F 0.6 0.0 - 0.9 % [facility] Blood 03/12/2025 1:06 PM CDT 03/12/2025 2:41 PM CDT Vidal Mcdaniels MD LAB BLOOD ORDERABLES Fin al Result Performing Organization Address City/[facility] Co de Phone Number [facility] Department [place] [address] * Hepatitis C antibody Blood (03/12/2025 1:06 PM CDT) Pathologist [facility] Hep C Ab Nonreactive Nonreactive Comment:Antibodies to HCV no t detected. Does NOT exclude the possibility of recent exposure to HCV. Current interpretive data was last revised on 22 Blood 03/12/2025 1:06 PM CDT 03/12/2025 2:39 PM CDT Vidal Mcdaniels MD LAB MICROBIOLOGY - GENER AL ORDERABLES Final Result Performing Organization Address City/[facility] Co de Phone Number [facility] Department [place] [address] * Rubella IgG antibody Blood (03/12/2025 1:06 PM CDT) Rubella IgG Reactive Comment:Reactive: Results hoover ggest response to immunization or prior exposure to the virus. Blood 03/12/2025 1:06 PM CDT 03/12/2025 2:40 PM CDT Vidal Mcdaniels MD LAB MICROBIOLOGY - GENER AL ORDERABLES Final Result Performing Organization Address City/[facility] Co de Phone Number [facility] [employer] [place] [address] * RPR Blood (03/12/2025 1:06 PM CDT) [facility] RPR Nonreactive Nonreactive Blood 03/12/2025 1:06 PM CDT 03/12/2025 2:40 PM CDT Vidal Mcdaniels MD LAB MICROBIOLOGY - GENER AL ORDERABLES Final Result Performing Organization Address [facility] Co de Phone Number [facility] [place] [address] * Hepatitis B Surface Antigen Blood (03/12/2025 1:06 PM CDT) [facility] HepBsAg Nonreactive Nonreactive Blood 03/12/2025 1:06 PM CDT 03/12/2025 2:39 PM CDT Vidal Mcdaniels MD LAB MICROBIOLOGY - GENER AL ORDERABLES Final Result Performing Organization Address [facility] Co de Phone Number [facility] [place] [address] * (ABNORMAL) CBC without differential (03/12/2025 1:06 PM CDT) [facility] WBC 15.54(H) 3.80 - 9.90 K/cumm Hgb 13.3 11.9 - 15.5 g/dL [facility] Hct 38.4 35.6 - 45.5 % [facility] Plt 311 150 - 400 K/cumm [facility] MPV 10.8 9.1 - 12.3 fL [facility] RBC 4.23 3.90 - 5.20 M/cumm [facility] MCV 90.8 81.3 - 96.4 fL [facility] MCH 31.4 27.1 - 33.3 pg [facility] MCHC 34.6 32.3 - 35.7 g/dL [facility] RDW CV 13.5 11.1 - 14.9 % [facility] RDW SD 45.0 35.7 - 48.1 fL [facility] NRBC abs 0.00 0.00 - 0.01 K/cumm [facility] Blood 03/12/2025 1:06 PM CDT 03/12/2025 2:41 PM CDT Vidal Mcdaniels MD LAB BLOOD ORDERABLES Fin al Result Performing Organization Address City/[facility]/ZIP Co de Phone Number [facility] Department [place] [address] * Varicella Zoster IgG antibody Blood (03/12/2025 1:06 PM CDT) Pathologist [facility] VZV IgG Reactive Reactive Comment:Reactive: Results hoover ggest response to immunization or prior exposure to the virus. Blood 03/12/2025 1:06 PM CDT 03/12/2025 2:40 PM CDT Vidal Mcdaniels MD LAB MICROBIOLOGY - GENER AL ORDERABLES Final Result Performing Organization Address [facility] Co de Phone Number [facility] Department [place] [address] * Hemoglobin A1c (03/12/2025 1:06 PM CDT) Pathologist [facility] Hgb A1C 5.3 4.0 - 5.6 % Estimated Average Glucose 105 mg/dL [facility] Comment: The ADA recommends reporting an estimated Average Glucose (eAG) with all Hemoglobin A1c results using the equation derived from a study of 507 normal and diabetic adults. Minority populations were underrepresented and children were not included. (Diabetes Care 2020; 43(S1): S66-S76). The eAG is not equivalent to a fasting glucose. Blood 03/12/2025 1:06 PM CDT 03/12/2025 2:41 PM CDT Vidal Mcdaniels MD LAB BLOOD ORDERABLES Fin al Result Performing Organization Address City/[facility] Co de Phone Number [facility] Department [place] [address] * Urine culture Urine, clean voided (03/12/2025 12:48 PM CDT) Report Final Report: Less than 100,000 colonies/mL (clinically insignificant growth based on current clinical standards) Organism (CLINICALLY INSIGNIFICANT GROWTH [facility] Urine, clean voided 03/12/2025 12:48 PM CDT 03/12/2025 1:41 PM CDT Narrative [facility] - 03/14/2025 8:10 AM CDT Testing performed by [facility] Microbiology Laboratory ([phone]) Vidal Mcdaniels MD LAB MICROBIOLOGY - GENER AL ORDERABLES Final Result Performing Organization Address [facility] Co de Phone Number [facility] Department [place] [address] * US Ob Limited W Endovag (03/12/2025 11:10 AM CDT) Anatomical Region Laterality Modality Body N/A Ultrasound 03/12/2025 11:1 7 AM CDT Impressions 03/12/2025 12:06 PM CDT Single intrauterine with cardiac activity and biometry consistent with clinical dates. Corpus luteum on the right. Normal adnexa. Narrative Procedure Note Lesli Larose MD - 03/12/2025 IMPRESSION: Single intrauterine with cardiac activity and biometryconsistent with clinical dates. Corpus luteum on the right. Normaladnexa. us Dania Gloria MD IMG US PROCEDURES Final Result * (ABNORMAL) Urinalysis reflex to microscopic and culture Urine, clean voided (03/01/2025 4:23 PM CDT) Color, ur Straw Yellow Clarity, ur Clear Clear [facility] Specific gravity, ur 1.007 1.003 - 1.030 [facility] pH, urine 6.0 [facility] Comment: Interpretive Data U rine pH is affected by diet, medications, systemic acid-base disturbances, and renal tubular function. pH may affect urinary stone formation. For example, urine pH below 6.0 may help reduce the tendency for calcium phosphate stones and pH greater than 6.0 may reduce the tendency for uric acid stone formation. Source: [facility] [employer] Current Interpretive Data was last revised on 2017 Protein, ur ql Negative Negative [facility] Glucose, ur ql Negative Negative [facility] Ketones, ur 1+(A) Negative [facility] Bilirubin, ur Negative Negative [facility] Blood, ur Negative Negative [facility] Urobilinogen, ur <2.0 <2.0 mg/dL [facility] Nitrite, ur Negative Negative [facility] Leukocyte esterase, ur Negative Negative [facility] UA reflex comment Reflex conditions for microscopic UA and culture not met. [facility] Urine, clean voided 03/01/2025 4:23 PM CDT 03/01/2025 4:29 PM CDT Becky Bowens MD LAB MICROBIOLOGY - [facility] ORDERABLES Final Result [facility] Department [place] [address] * N. gonorrhoeae/C. trachomatis Amplification Vaginal (03/01/2025 3:42 PM CDT) C. trachomatis Not Detected Not Detected [facility] N. gonorrhoeae Not Detected Not Detected [facility] Comment: Interpretive Data This assay detects Chlamydia trachomatis and Neisseria gonorrhoeae by nucleic acid amplification testing (NAAT). This assay has been cleared by the [place] Food and Drug administration. The performance characteristics of this test have been verified by the [facility] Molecular Infectious Disease laboratory. The performance characteristics of this test have not been evaluated in individuals less than 14 years of age. Current Interpretive Data last revised 2023. Vaginal (None) 03/01/2025 3: 42 PM CDT 03/01/2025 3:52 PM CDT Becky Bowens MD LAB MICROBIOLOGY - GENER AL ORDERABLES Final Result Performing Organization Address [facility] Co de Phone Number RHIANNA [facility] [place] [employer] [place] [address] [facility] * Trichomonas vaginalis PCR Vaginal (03/01/2025 3:42 PM CDT) Pathologist [facility] Trichomonas DNA Not Detected Not Detected [facility] Vaginal 03/01/2025 3:42 PM CDT 03/01/2025 3:52 PM CDT Narrative RHIANNA [facility] - 03/01/2025 5:16 PM CDT Interpretive Data: This assay detects Trichomonas vaginalis by nucleic acid amplification testing (NAAT). This assay has been cleared by the [place] Food and Drug administration. The performance characteristics of this test have been verified by the [facility] Molecular Infectious Disease laboratory. Excess blood in specimens may be inhibitory and result in false negative results. The performance of this test has not been evaluated in women or individuals less than 18 years of age. Becky Bowens MD LAB MICROBIOLOGY - GENER AL ORDERABLES Final Result Performing Organization Address [facility] de Phone Number RHIANNA [facility] [place] [employer] [place] [address] [facility] * POCUS Female TVUS, (02/27/2025 7:03 AM CDT) Anatomical Region Laterality Modality Other 02/27/2025 6:30 AM CDT Narrative 03/06/2025 2:30 AM CDT Performed by: Luis Daniel Urias TVUS: Exam Information: Exam type: Diagnostic Indication(s) for Exam: by history, Quantitative hCG (+), Urine hCG (+), Abdominal/pelvic pain, Vaginal bleeding Findings: IUP: Indeterminate Intrauterine contents : Indeterminate Right adnexa : Ovarian cyst Simple Left adnexa : Indeterminate Pelvic free fluid: Small Interpretation: of undetermined location (PUL) Electronically signed by Luis Daniel Urias on Thursday, February 27, 2025 at 9:53 AM I have reviewed the images & the resident's interpretation. I agree with the findings. Images on file. Electronically signed by Denny Richardson on Thursday, March 06, 2025 at 2:30 AM I have reviewed the images & the resident's interpretation. I agree with the findings. Images on file. Procedure Note Denny Richardson MD - 03/06/2025 Performed by: Luis Daniel Urias TVUS: Exam Information: Exam type: Diagnostic Indication(s) for Exam: by history, Quantitative hCG (+), Urine hCG (+),Abdominal/pelvic pain, Vaginal bleeding Findings: IUP: Indeterminate Intrauterine contents : Indeterminate Right adnexa : Ovarian cyst Simple Left adnexa : Indeterminate Pelvic free fluid: Small Interpretation: of undetermined location (PUL) Electronically signed by Luis Daniel Urias on Thursday, February 27, 2025 at9:53 AM I have reviewed the images & the resident's interpretation. I agree withthe findings. Images on file. Electronically signed by Denny Richardson on March 06t 2:30 AM I have reviewed the images & the resident's interpretation. I agree withthe findings. Images on file. Denny Richardson MD POCUS ORDERABLES Final Result * POCUS Female TAB Pelvic, Non- (02/27/2025 6:27 AM CDT) Anatomical Region Laterality Modality Other 02/27/2025 6:08 AM CDT Narrative 03/13/2025 11:31 PM CDT Performed by: Luis Daniel Urias Transabdominal: Exam Information: Exam type: Diagnostic Indication(s) for Exam: by history, Urine hCG (+), Abdominal/pelvic pain, Vaginal bleeding Findings: IUP: Absent Intrauterine contents : Empty Right adnexa : Indeterminate Left adnexa : Indeterminate Pelvic free fluid: Small Interpretation: of undetermined location (PUL) Electronically signed by Luis Daniel Urias on Thursday, February 27, 2025 at 9:51 AM I have reviewed the images & the resident's interpretation. I agree with the findings. Images on file. Electronically signed by Dneny Richardson on Thursday, March 13, 2025 at 11:31 PM I have reviewed the images & the resident's interpretation. I agree with the findings. Images on file. Procedure Note Denny Richardson MD - 03/13/2025 Performed by: Luis Daniel Urias Transabdominal: Exam Information: Exam type: Diagnostic Indication(s) for Exam: by history, Urine hCG (+), Abdominal/pelvic pain, Vaginalbleeding Findings: IUP: Absent Intrauterine contents : Empty Right adnexa : Indeterminate Left adnexa : Indeterminate Pelvic free fluid: Small Interpretation: of undetermined location (PUL) Electronically signed by Luis Daniel Urias on Thursday, February 27, 2025 at9:51 AM I have reviewed the images & the resident's interpretation. I agree withthe findings. Images on file. Electronically signed by Denny Richardson on March 13t 11:31 PM I have reviewed the images & the resident's interpretation. I agree withthe findings. Images on file. Denny Richardson MD POCUS ORDERABLES Final Result * (ABNORMAL) POCT hCG, urine (02/27/2025 5:55 AM CDT) HCG, ur, POC Positive(A) Negative Lot Number [id number] QC Backgroud Clear Acceptable QC Control Line Acceptable Urine 02/27/2025 5:55 AM CDT Denny Richardson MD POINT OF CARE TEST ORDERABLES Final Result * (ABNORMAL) Differential, auto (02/27/2025 5:08 AM CDT) Neutrophil abs 9.19(H) 1.50 - 6.50 K/cumm Imm gran abs 0.08 0.00 - 0.10 K/cumm [facility] Lymphocyte abs 2.38 0.80 - 3.30 K/cumm [facility] Monocyte abs 1.06(H) 0.20 - 0.80 K/cumm [facility] Eosinophil abs 0.28 0.00 - 0.50 K/cumm [facility] Basophil abs 0.07 0.00 - 0.10 K/cumm [facility] Neutrophil pct 70.5 % [facility] Comment: Interpretive Data Percent cell count reference ranges are not reported, since discordance with absolute values may lead to misinterpretation of CBC data. Current Interpretive Data was last revised on 2017. Imm gran pct 0.6 % [facility] Comment: Interpretive Data Percent cell count reference ranges are not reported, since discordance with absolute values may lead to misinterpretation of CBC data. Current Interpretive Data was last revised on 2017. Lymphocyte pct 18.2 % [facility] Comment: Interpretive Data Percent cell count reference ranges are not reported, since discordance with absolute values may lead to misinterpretation of CBC data. Current Interpretive Data was last revised on 2017. Monocyte pct 8.1 % [facility] Comment: Interpretive Data Percent cell count reference ranges are not reported, since discordance with absolute values may lead to misinterpretation of CBC data. Current Interpretive Data was last revised on 2017. Eosinophil pct 2.1 % [facility] Comment: Interpretive Data Percent cell count reference ranges are not reported, since discordance with absolute values may lead to misinterpretation of CBC data. Current Interpretive Data was last revised on 2017. Basophil pct 0.5 % [facility] Comment: Interpretive Data Percent cell count reference ranges are not reported, since discordance with absolute values may lead to misinterpretation of CBC data. Current Interpretive Data was last revised on 2017. Blood 02/27/2025 5:08 AM CDT 02/27/2025 5:35 AM CDT us Denny Richardson MD LAB BLOOD ORDERABLES Final Re sult [facility] Department [place] [employer] [address] * (ABNORMAL) CBC with auto differential (02/27/2025 5:08 AM CDT) Pathologist [facility] WBC 13.06(H) 3.80 - 9.90 K/cumm Hgb 12.8 11.9 - 15.5 g/dL [facility] Hct 38.3 35.6 - 45.5 % [facility] Plt 334 150 - 400 K/cumm [facility] MPV 10.2 9.1 - 12.3 fL [facility] RBC 4.16 3.90 - 5.20 M/cumm [facility] MCV 92.1 81.3 - 96.4 fL [facility] MCH 30.8 27.1 - 33.3 pg [facility] MCHC 33.4 32.3 - 35.7 g/dL [facility] RDW CV 13.6 11.1 - 14.9 % [facility] RDW SD 45.7 35.7 - 48.1 fL [facility] NRBC abs 0.00 0.00 - 0.01 K/cumm [facility] Blood Venous blood specimen / Unknown 02/27/2025 5:08 AM CDT 02/27/2025 5:35 AM CDT us Denny Richardson MD LAB BLOOD ORDERABLES Final Re sult RHIANNA [facility] Department [place] [address] * ABO/Rh (02/27/2025 5:08 AM CDT) Pathologist [facility] ABO Rh A Positive Blood 02/27/2025 5:08 AM CDT 02/27/2025 5:43 AM CDT Denny Richardson MD LAB BLOOD BANK TEST ORDERABLE S Final Result Performing Organization Address [facility] Co de Phone Number RHIANNA FREEMAN [facility] [place] [address] * (ABNORMAL) hCG, blood, quantitative (02/27/2025 5:08 AM CDT) hCG, quant 11,157.0( H) 0.0 - 5.0 IUnits/L Comment: Interpretive Data Male: < 5 IU/L Non- premenopausal Female: <5 IU/L The Dre hCG Beta Quant assay procedure was used. Results from different manufacturers or methods may not be comparable. Serial testing should be performed using the same method. Interpretive Data was last revised on 2023 Blood 02/27/2025 5:08 AM CDT 02/27/2025 5:27 AM CDT Denny Richardson MD LAB BLOOD ORDERABLES Final Re sult Performing Organization Address [facility] Co de Phone Number RHIANNA PE[facility] [place] [address] * US Ob Under 14 Weeks (02/21/2025 11:46 AM CDT) Anatomical Region Laterality Modality Abdomen N/A Ultrasound 02/21/2025 12:5 7 PM CDT Narrative 02/21/2025 1:00 PM CDT EXAM DESCRIPTION: US OB UNDER 14 WEEKS REASON FOR STUDY: pain, c/f ectopic Beta-hC TECHNIQUE: Transabdominal and transvaginal images acquired of the pelvis. COMPARISON: None available FINDINGS: Clinical gestational age: 4 weeks 6 days Clinical estimated Due Date: 10/30/2025 Intrauterine gestational sac: Not identified Yolk sac: Not identified Subchorionic bleed: No Placenta: Not identified Gestational age by this ultrasound: None available JOSEPH by this ultrasound: None available Uterus: The uterus is anteverted , measuring 9.8 x 5.0 by 5.5 cm. Right Ovary/Adnexa: The right ovary measures 2.8 x 2.2 x 2.1 cm. There is documentation of color Doppler flow in the right ovary. The right ovary appears unremarkable. No adnexal mass. Left Ovary/Adnexa: The left ovary measures 2.8 x 2.3 x 1.7 cm. There is documentation of color Doppler flow in the left ovary. The left ovary appears unremarkable. No adnexal mass. Free Fluid: None. Other Findings: None. IMPRESSION: No evidence of intrauterine at this time. No adnexal abnormality. Please correlate clinically, with beta HCG levels and consider follow-up ultrasound. THIS IS AN ELECTRONICALLY VERIFIED FINAL REPORT 02/21/2025 1:00 PM - Electronically signed by Lawrence Soares M.D. RB: ROBB Report ID: [id number] Reading Location: [id number] Procedure Note Lawrence Soares MD - 02/21/2025 EXAM DESCRIPTION: US OB UNDER 14 WEEKS REASON FOR STUDY: pain, c/f ectopic Beta-hC TECHNIQUE: Transabdominal and transvaginal images acquired of thepelvis. COMPARISON: None available FINDINGS: Clinical gestational age: 4 weeks 6 days Clinical estimated Due Date: 10/30/2025 Intrauterine gestational sac: Not identified Yolk sac: Not identified Subchorionic bleed: No Placenta: Not identified Gestational age by this ultrasound: None available JOSEPH by this ultrasound: None available Uterus: The uterus is anteverted , measuring 9.8 x 5.0 by 5.5 cm. Right Ovary/Adnexa: The right ovary measures 2.8 x 2.2 x 2.1 cm. Thereis documentation of color Doppler flow in the right ovary. The right ovary appears unremarkable. No adnexal mass. Left Ovary/Adnexa: The left ovary measures 2.8 x 2.3 x 1.7 cm. There is documentation of color Doppler flow in the left ovary. The left ovaryappears unremarkable. No adnexal mass. Free Fluid: None. Other Findings: None. IMPRESSION: No evidence of intrauterine at this time. No adnexal abnormality. Please correlate clinically, with beta HCG levels and consider follow-up ultrasound. THIS IS AN ELECTRONICALLY VERIFIED FINAL REPORT 02/21/2025 1:00 PM - Electronically signed by Lawrence Soares M.D. RB: ROBB Report ID: [id number] Reading Location: [place] [address] us Andrez Skinner MD IMG OB US PROCEDURE S Final Result * eGFR (02/21/2025 9:22 AM CDT) eGFR >90 >=60 mL/min/1. 73 m2 Comment: Interpretive Data Reference Interval Normal >/= 90 mL/min/1.73m2 Mildly decreased* 60 - 89 mL/min/1.73m2 Mildly to moderately decreased 45 - 59 mL/min/1.73m2 Moderately to severely decreased 30 - 44 mL/min/1.73m2 Severely decreased 15 - 29 mL/min/1.73m2 Kidney Failure < 15 mL/min/1.73m2 *Relative to young adult level Estimated glomerular filtration rate is determined by the 2020 CKD-EPI equation recommended by the National Kidney Foundation (A Unifying Approach to GFR Estimation: Recommendations of the NKF-ASK Task Force on Reassessing the Inclusion of Race in Diagnosing Kidney Disease, JASN 2020). The CKD-EPI equation should not be used for patients with unstable renal function and has not been validated in children and those over 70. Current interpretive data was last reviewed 2021. Blood 02/21/2025 9:22 AM CDT 02/21/2025 9:26 AM CDT us Andrez Skinner MD LAB BLOOD ORDERABLE S Final Result [facility]) [facility] [place] [address] * (ABNORMAL) CBC without differential (02/21/2025 9:22 AM CDT) WBC 13.21(H) 3.80 - 9.90 K/cumm Hgb 12.6 11.9 - 15.5 g/dL [facility] ([facility]) Hct 38.4 35.6 - 45.5 % [facility] ([facility]) Plt 304 150 - 400 K/cumm [facility] ([facility]) MPV 10.1 9.1 - 12.3 fL [facility] ([facility]) RBC 4.11 3.90 - 5.20 M/cumm [facility] ([facility]) MCV 93.4 81.3 - 96.4 fL [facility] ([facility]) MCH 30.7 27.1 - 33.3 pg [facility] ([facility]) MCHC 32.8 32.3 - 35.7 g/dL [facility] ([facility]) RDW CV 13.4 11.1 - 14.9 % [facility]) RDW SD 45.6 35.7 - 48.1 fL [facility] ([facility]) NRBC abs 0.00 0.00 - 0.01 K/cumm [facility] ([facility]) Blood 02/21/2025 9:22 AM CDT 02/21/2025 9:26 AM CDT us Andrez Skinner MD LAB BLOOD ORDERABLE S Final Result [facility] ([facility]) [facility] [place] [address] * (ABNORMAL) hCG, blood, quantitative (02/21/2025 9:22 AM CDT) hCG, quant 1,579.0(H ) 0.0 - 5.0 IUnits/L [facility] ([facility]) Comment: Interpretive Data Male: < 5 IU/L Non- premenopausal Female: <5 IU/L The Dre hCG Beta Quant assay procedure was used. Results from different manufacturers or methods may not be comparable. Serial testing should be performed using the same method. Interpretive Data was last revised on 2023 Blood 02/21/2025 9:22 AM CDT 02/21/2025 9:26 AM CDT us Andrez Skinner MD LAB BLOOD ORDERABLE S Final Result [facility]NA [facility] ([facility]) 1 [facility] [place] [address] [address] * (ABNORMAL) Basic metabolic panel (02/21/2025 9:22 AM CDT) Sodium 134(L) 135 - 145 mmol/L [facility] ([facility]) Potassium, pl 4.0 3.3 - 4.9 mmol/L [facility] ([facility]) Chloride 102 97 - 110 mmol/L [facility] ([facility]) CO2 21(L) 22 - 32 mmol/L [facility] ([facility]) Anion gap 11 2 - 15 mmol/L [facility] ([facility]) BUN 8 6 - 25 mg/dL [facility] ([facility]) Creatinine 0.69 0.60 - 1.10 mg/dL [facility] ([facility]) Glucose 116 70 - 199 mg/dL [facility] ([facility]) Comment: Interpretive Data Fasting glucose >/= 126 mg/dl is diagnostic for diabetes. Fasting is defined as no caloric intake for at least 8 hours. Fasting glucose between 100 mg/dl to 125 mg/dl is diagnostic of prediabetes. In a patient with classic symptoms of hyperglycemia or hyperglycemic crisis, a random glucose >/= 200 mg/dl is diagnostic for diabetes. In the absence of unequivocal hyperglycemia, results should be confirmed by repeat testing. The classification and Diagnosis of Diabetes Diabetes Care 2021; 46: S19-S40. Current interpretive data was last revised 2022. Calcium 9.0 8.5 - 10.3 mg/dL [facility] ([facility]) Blood 02/21/2025 9:22 AM CDT 02/21/2025 9:26 AM CDT us Andrez Skinner MD LAB BLOOD ORDERABLE S Final Result [facility]NA DIA[facility] ([place]) [facility] [place] [address] * (ABNORMAL) POCT hCG, urine (02/19/2025 3:34 PM CDT) HCG, ur, POC Positive(A) Negative Lot Number [id number] QC Backgroud Clear Acceptable QC Control Line Acceptable Urine 02/19/2025 3:34 PM CDT Mare Falk MD POINT OF CARE TEST ORDERA BLES Final Result from Last 3 Months [facility] IDFL Care Teams Online Marketing Analyst Relationship Specialty Start Date End Date Priyank Mitchell MD PCP - General 03/18/17 Danielle Haas MD Surgeon Vascular Surgery 04/07/22 Duy Kerr MD [address] [address] Database Admin Hematology 03/01/23
--- OUTSIDE RECORDS SUMMARY | 2025-03-19 16:47 | XMS_ITS | Clinical Summary ---
Author Organization [facility] [address] Address [address] [place] [address] Care Team Providers Care Cigarette Roller Name Role Phone Priyank Mitchell MD Primary [...] Comments Blood Pressure 121/74 07/21/2022 10:58 AM SYSTEM SUPPORT SPECIALIST Pulse 69 07/21/2022 10:58 AM SYSTEM SUPPORT SPECIALIST Temperature 36.4 C (97.5 F) 07/21/2022 10:58 AM SYSTEM SUPPORT SPECIALIST Respiratory Rate 14 07/21/2022 10:58 AM SYSTEM SUPPORT SPECIALIST Oxygen Saturation 98% 07/21/2022 10:58 AM SYSTEM SUPPORT SPECIALIST Inhaled Oxygen Concentration - - Weight 84.9 kg (187 lb 3.2 oz) 07/21/2022 10:58 AM SYSTEM SUPPORT SPECIALIST Height 157.5 cm (5' 2) 04/29/2022 1:42 [...] SMEAR 2019 INFLUENZA VACCINE (#1) 2025 Insurance [facility] MEDICAID Care Teams Cigarette Roller Relationship Specialty Start Date End Date Priyank Mitchell MD [address] [address] PCP - General Family Practice 07/21/22
--- OUTSIDE RECORDS SUMMARY | 2025-03-19 16:47 | XMS_ITS | Clinical Summary ---
Author Organization [facility] Address [address] [place] [address] Phone Care Team Providers Care Hadoop Java Developer Name Role Phone Priyank Mitchell MD Primary [...] Comments Blood Pressure 104/68 08/23/2019 8:41 AM DISTRIBUTION TECH Pulse 72 08/23/2019 8:41 AM DISTRIBUTION TECH Temperature 36.4 C (97.6 F) 08/23/2019 8:41 AM DISTRIBUTION TECH Respiratory Rate 16 08/23/2019 8:41 AM DISTRIBUTION TECH Oxygen Saturation 98% 08/23/2019 8:41 AM DISTRIBUTION TECH Inhaled Oxygen Concentration - - Weight 95.3 kg (210 lb 1.6 oz) 08/23/2019 8:41 A M DISTRIBUTION TECH Height 157.5 cm (5' 2) 08/23/2019 8:41 AM DISTRIBUTION TECH Body Mass Index 38.43 08/23/2019 8:41 AM DISTRIBUTION TECH Plan of Treatment Health Maintenance Due Date [...] to complete this topic Insurance MEDICAID [employer] [facility] Care Teams Hadoop Java Developer Relationship Specialty Start Date End Date Priyank Mitchell MD [address] [place] [address] PCP - General Family Medicine 09/02/15
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
[2025-03-19 18:04] LABS: Hematocrit 37.0 % (37.0-47.0); Hemoglobin 12.2 g/dL (12.0-15.0); Immature Granulocyte Percent A 0.4 % (0-0.5); Lymphocytes Absolute Auto 2.63 K/mm3 (0.9-3.2); Mean Corpuscular HGB Conc 33.0 g/dl (32-36); Mean Corpuscular Hemoglobin 30.8 pg (26-34); Mean Corpuscular Volume 93.4 fl (80-100); Nucleated Red Blood Cells Absolute Auto 0.000 K/mm3 (0.0-0.012); Nucleated Red Blood Cells Perc 0.0 % (0.0-0.2); Platelet Count Result 303 k/mm3 (150-375); Red Blood Count 3.96 M/mm3 (4.2-5.4); White Blood Count 14.3 K/mm3 (4.5-10.0)
[2025-03-19 18:12] LABS: Alanine Aminotransferase 16 U/L (6-35); Albumin Level 4.1 g/dL (3.5-5.1); Alkaline Phosphatase 96 U/L (38-126); Anion Gap 8 mmol/L (4-12); Aspartate Amino Transferase 23 U/L (14-36); Bilirubin,Total 0.3 mg/dL (0.2-1.3); Blood Urea Nitrogen 9 mg/dL (7-17); Calcium 9.2 mg/dL (8.4-10.2); Carbon Dioxide 23 mmol/L (22-30); Chloride 102 mmol/L (98-107); Estimated CRCL calculation 116 ml/min; Estimated Glomerular Filt Rate > 60; Glucose 95 mg/dL (65-110); Potassium 3.5 mmol/L (3.4-5.0); Sodium 133 mmol/L (137-145); Total Protein 7.3 g/dL (6.3-8.2)
[2025-03-19 18:15] LABS: INR 1.3; Prothrombin Time 16.2 Seconds (11.1-14.7)
[2025-03-19 18:16] LABS: Partial Thromboplastin Time 26.1 Seconds (22.3-36.8)
[2025-03-19 18:19] LABS: Add Urine Microscopic? NO; Appearance Urine Clear (Clear); Glucose Urine UA Negative (Negative); Leukocyte Esterase Ur Negative LEU/UL (Negative); Nitrate Urine Negative (Negative); Specific Grav Ur 1.004 (1.001-1.035)
--- OUTSIDE RECORDS SUMMARY | 2025-03-19 18:40 | XMS_ITS | Clinical Summary ---
Author Organization [facility] Address [address] [place] [address] Care Team Providers Care Undercover Operator Name Role Phone Priyank Mitchell MD Primary Care Provider [phone] Danielle Haas MD Unavailable Duy Kerr MD Unavailable [phone] Allergies Active Allergy Reactions Criticality Noted [...] le 5 03/13/20 26 Active PNV with qloytzx-sakp-H A ( Vitamin Plus Low Iron) 27 [...] 03/13/20 25 Discontinu ed(Reorder ) PNV with lecnrnc-njvx-T A ( Vitamin Plus Low Iron) 27 [...] throughout and period [] Referral placed to [facility] HROB: Supervision of high-risk , first trimester [...] education: completed in all 3 trimesters [] Sharepoint Architect: [] Car seat discussed [] PP depression [...] Description 03/14/2025 Telephone [facility] [address] [place] [address] Floor [address] [place] [phone] Jo Murillo RN 03/14/2025 Telephone [facility] [address] [place] [address] Floor [address] [place] [phone] Karlos Benítez 03/13/2025 Telephone [facility] [address] [place] [address] Floor [address] [place] [phone] Karlos Benítez 03/13/2025 Orders Only [facility] [address] [place] [address] Floor [address] [place] [phone] Luann Martinez RN 03/13/2025 Telephone [facility] [address] [place] [address] Floor [address] [place] [phone] Karlos Benítez 03/12/2025 11:30 AM CDT Initial [facility]etric[facility] Clinic [address] [place] [address] [place] [phone] GA: 7w4d 03/12/2025 11:00 AM CDT - 03/12/2025 11:59 PM CDT Hospital Encounter [facility] Outpatient [facility] - Ultrasound [address] [place] [phone] Intrauterine Discharge Disposition: Discharge to home or self care 03/01/2025 1:28 PM CDT - 03/01/2025 4:30 PM CDT Hospital Encounter [address] [phone] Becky Bowens MD Discharge Disposition: Discharge to home or self care 03/01/2025 Telephone [facility] [address] [place] [address] Floor [address] [place] [phone] Jo Murillo RN 03/01/2025 Telephone [facility] [address] [place] [address] Outpatient Health 3rd Floor [address] [place] [phone] Margarita Sarkar LPN 02/28/2025 Telephone [facility] [address] [place] [address] 3rd Floor [address] [place] [phone] Noelle Gurrola RN 02/27/2025 5:49 AM CDT - 02/27/2025 8:44 AM CDT Emergency [facility] Emergency Department [address] [place] [phone] Denny Richardson MD Guess, MD Lily Lozada, Zulay Rock MD Intrauterine (Primary Dx); Vaginal bleeding; Prothrombin gene mutation Discharge Disposition: Discharge to home or self care 02/27/2025 Nurse Triage [address] [phone] Barbra Castrejon patty 02/25/2025 Telephone [facility] [address] [place] [address] Floor [address] [place] [phone] Tiara Wise 02/21/2025 9:04 AM CDT - 02/21/2025 1:15 PM CDT Emergency [facility] Emergency Department [address] [place] [address] Andrez Skinner MD First trimester (Primary Dx) Discharge Disposition: Discharge to home or self care 02/19/2025 2:37 PM CDT - 02/19/2025 4:17 PM CDT Emergency [facility] Emergency Department [address] [place] [address] Discharge Disposition: Left without being seen from [...] History Date Comments Depression Acid reflux Prothrombin [id number] mutation Back pain Family History Medical History [...] money to get more. 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 Has been taking PNV. No further spotting since she was last seen in [facility] on 03/01. Patient Active Problem List Diagnosis Symptomatic varicose veins, left HROB: Prothrombin gene mutation Varicose veins of lower extremities with complications, right Varicose veins of lower extremity with ulcer limited to breakdown of skin ([facility]) HROB: Supervision of high-risk , first trimester HROB: Severe obesity due to excess calories affecting in second trimester ([facility]) HROB:Anxiety/depression Morning sickness? yes movement? [...] Cell Disease or Trait () [-] Thalasemia (Omani, Belarusian, Medit or ; MCV <80) [-] Jonas Sachs Disease (Orthodoxy, Cajun, Syriac [place]) [-] Down's Syndrome [-] Neural Tube Defects (Meningomyelocele, Spina Bifida or Anencephaly) [-] Other Developmental Delay [-] Cystic Fibrosis [-] Dilip's Chorea [-] Muscular Dystrophy [-] Hemophilia [-] Other Heritable condition Medical History: Past Medical History: Diagnosis Date Acid reflux Back pain Depression Prothrombin [id number] mutation Allergies Allergen Reactions Fentanyl Seizures and [...] education: completed in all 3 trimesters [] Sharepoint Architect: [] Car seat discussed [] PP depression [...] y.o. at 7w4d with complicated by prothrombin [id number] heterozygous mutation, BMI 38, and anxiety/depression/possible bipolar [...] Contact Info) Description 10/25/2025 Hospital Encounter [address] [phone] Becky Bowens MD [address] [place] [address] Health Maintenance Due Date Last Done Comments [...] and screen (03/12/2025 1:12 PM CDT) Pathologist [facility] Bob, indirect Negative ABO Rh A Positive [facility] Blood 03/12/2025 1:12 PM CDT 03/12/2025 3:04 PM CDT Narrative [facility] - 03/12/2025 4:11 PM CDT Has the patient had Daratumumab or Isatuximab in the past 6 months?->Unknown Vidal Mcdaniels MD LAB BLOOD BANK TEST ORDE RABLES Final Result Performing Organization Address City/[facility]/ZIP Co de Phone Number [facility] Department [email or web address] [address] * HIV 1/2 Antibody plus p24 Antigen Blood (03/12/2025 1:06 PM CDT) Pathologist [facility] HIV 1/2 ab + p24 ag Nonreactive Nonreactive Comment:Nonreactive for HIV- 1 antigen and HIV-1/HIV-2 antibodies. No laboratory evidence of HIV infection. If acute HIV infection is suspected, consider testing for HIV-1 RNA. Current interpretive data was last revised on 22. Blood 03/12/2025 1:06 PM CDT 03/12/2025 2:41 PM CDT Vidal Mcdaniels MD LAB MICROBIOLOGY - GENER AL ORDERABLES Final Result [facility] Department [email or web address] [address] * Hemoglobin analysis by electrophoresis (03/12/2025 1:06 PM CDT) [facility] RBC 4.12 3.90 - 5.20 M/cumm Hgb 13.1 11.9 - 15.5 g/dL [facility] MCV 91.0 81.3 - 96.[address] [facility] Rdw 13.5 11.1 - 14.9 % [facility] Hgb electrophoresis , interp Please see comment [facility] Comment: Normal hemoglobin pattern for age Reviewed and signed by Yong Cobian MD 03/14/2025 Hgb A 96.9 96.0 - 98.5 % [facility] Hgb A2 2.5 1.5 - 3.2 % [facility] Hgb F 0.6 0.0 - 0.9 % [facility] Blood 03/12/2025 1:06 PM CDT 03/12/2025 2:41 PM CDT Vidal Mcdaniels MD LAB BLOOD ORDERABLES Fin al Result Performing Organization Address City/[facility] Co de Phone Number [facility] Department [place] [address] * Hepatitis C antibody Blood (03/12/2025 1:06 PM CDT) Pathologist [facility] Hep C Ab Nonreactive Nonreactive Comment:Antibodies to HCV no t detected. Does NOT exclude the possibility of recent exposure to HCV. Current interpretive data was last revised on 22 Blood 03/12/2025 1:06 PM CDT 03/12/2025 2:39 PM CDT Vidal Mcdaniels MD LAB MICROBIOLOGY - GENER AL ORDERABLES Final Result Performing Organization Address City/[facility] Co de Phone Number [facility] Department [employer] [place] [address] * Rubella IgG antibody Blood (03/12/2025 1:06 PM CDT) Rubella IgG Reactive Comment:Reactive: Results hoover ggest response to immunization or prior exposure to the virus. Blood 03/12/2025 1:06 PM CDT 03/12/2025 2:40 PM CDT Vidal Mcdaniels MD LAB MICROBIOLOGY - GENER AL ORDERABLES Final Result Performing Organization Address City/[facility] Co de Phone Number [facility] [email or web address] [address] * RPR Blood (03/12/2025 1:06 PM CDT) [facility] RPR Nonreactive Nonreactive Blood 03/12/2025 1:06 PM CDT 03/12/2025 2:40 PM CDT Vidal Mcdaniels MD LAB MICROBIOLOGY - GENER AL ORDERABLES Final Result Performing Organization Address [facility] Co de Phone Number [facility] [place] [address] * Hepatitis B Surface Antigen Blood (03/12/2025 1:06 PM CDT) [facility] HepBsAg Nonreactive Nonreactive Blood 03/12/2025 1:06 PM CDT 03/12/2025 2:39 PM CDT Vidal Mcdaniels MD LAB MICROBIOLOGY - GENER AL ORDERABLES Final Result Performing Organization Address [facility] Co de Phone Number [facility] [place] [address] * (ABNORMAL) CBC without differential (03/12/2025 1:06 PM CDT) [facility] WBC 15.54(H) 3.80 - 9.90 K/cumm Hgb 13.3 11.9 - 15.5 g/dL [facility] Hct 38.4 35.6 - 45.5 % [facility] Plt 311 150 - 400 K/cumm [facility] MPV 10.8 9.1 - 12.[address] [facility] RBC 4.23 3.90 - 5.20 M/cumm [facility] MCV 90.8 81.3 - 96.[address] [facility] MCH 31.4 27.1 - 33.[address] [facility] MCHC 34.6 32.3 - 35.7 g/dL [facility] RDW CV 13.5 11.1 - 14.9 % [facility] RDW SD 45.0 35.7 - 48.[address] [facility] NRBC abs 0.00 0.00 - 0.01 K/cumm [facility] Blood 03/12/2025 1:06 PM CDT 03/12/2025 2:41 PM CDT Vidal Mcdaniels MD LAB BLOOD ORDERABLES Fin al Result Performing Organization Address City/[facility]/ZIP Co de Phone Number [facility] Department [place] [address] * Varicella Zoster IgG antibody Blood (03/12/2025 1:06 PM CDT) Pathologist [facility] VZV IgG Reactive Reactive Comment:Reactive: Results hoover ggest response to immunization or prior exposure to the virus. Blood 03/12/2025 1:06 PM CDT 03/12/2025 2:40 PM CDT Vidal Mcdaniels MD LAB MICROBIOLOGY - GENER AL ORDERABLES Final Result Performing Organization Address [facility] Co de Phone Number [facility] Department [place] [address] * Hemoglobin A1c (03/12/2025 1:06 PM CDT) Pathologist [facility] Hgb A1C 5.3 4.0 - 5.6 % Estimated Average Glucose 105 mg/dL [facility] Comment: The ADA recommends reporting an estimated [...] ORDERABLES Fin al Result Performing Organization Address City/[facility] Co de Phone Number [facility] Department [place] [address] * Urine culture Urine, clean voided (03/12/2025 12:48 PM CDT) Report Final Report: Less than 100,000 colonies/mL (clinically insignificant growth based on current clinical standards) Organism (CLINICALLY INSIGNIFICANT GROWTH [facility] Urine, clean voided 03/12/2025 12:48 PM CDT 03/12/2025 1:41 PM CDT Narrative [facility] - 03/14/2025 8:10 AM CDT Testing performed by [facility] Microbiology Laboratory ([phone]) Vidal Mcdaniels MD LAB MICROBIOLOGY - GENER AL ORDERABLES Final Result Performing Organization Address [facility] Co de Phone Number [facility] Department [place] [address] * US Ob Limited W Endovag (03/12/2025 [...] ur Straw Yellow Clarity, ur Clear Clear [facility] Specific gravity, ur 1.007 1.003 - 1.030 [facility] pH, urine 6.[address] [facility] Comment: Interpretive Data U rine pH is affected by diet, medications, systemic acid-base disturbances, and renal tubular function. pH may affect urinary stone formation. For example, urine pH below 6.0 may help reduce the tendency for calcium phosphate stones and pH greater than 6.0 may reduce the tendency for uric acid stone formation. Source: [facility] [email or web address] Current Interpretive Data was last revised on 2017 Protein, ur ql Negative Negative [facility] Glucose, ur ql Negative Negative [facility] Ketones, ur 1+(A) Negative [facility] Bilirubin, ur Negative Negative [facility] Blood, ur Negative Negative [facility] Urobilinogen, ur <2.0 <2.0 mg/dL [facility] Nitrite, ur Negative Negative [facility] Leukocyte esterase, ur Negative Negative [facility] UA reflex comment Reflex conditions for microscopic UA and culture not met. [facility] Urine, clean voided 03/01/2025 4:23 PM CDT 03/01/2025 4:29 PM CDT Becky Bowens MD LAB MICROBIOLOGY - [facility] ORDERABLES Final Result [facility] One [facility] [place] [address] * N. gonorrhoeae/C. trachomatis Amplification Vaginal (03/01/2025 3:42 PM CDT) C. trachomatis Not Detected Not Detected [facility] N. gonorrhoeae Not Detected Not Detected [facility] Comment: Interpretive Data This assay detects Chlamydia trachomatis and Neisseria gonorrhoeae by nucleic acid amplification testing (NAAT). This assay has been cleared by the [place] Food and Drug administration. The performance characteristics of this test have been verified by the [facility] Molecular Infectious Disease laboratory. The performance characteristics of this test have not been evaluated in individuals less than 14 years of age. Current Interpretive Data last revised 2023. Vaginal (None) 03/01/2025 3: 42 PM CDT 03/01/2025 3:52 PM CDT Bceky Bowens MD LAB MICROBIOLOGY - GENER AL ORDERABLES Final Result Performing Organization Address [facility] Co de Phone Number RHIANNA [facility] [email or web address] [address] [facility] * Trichomonas vaginalis PCR Vaginal (03/01/2025 3:42 PM CDT) Pathologist [facility] Trichomonas DNA Not Detected Not Detected [facility] Vaginal 03/01/2025 3:42 PM CDT 03/01/2025 3:52 PM CDT Narrative R[facility]ANNA [facility] - 03/01/2025 5:16 PM CDT Interpretive Data: This assay detects Trichomonas vaginalis by nucleic acid amplification testing (NAAT). This assay has been cleared by the [place] Food and Drug administration. The performance characteristics of this test have been verified by the [facility] Molecular Infectious Disease laboratory. Excess blood in specimens may be inhibitory and result in false negative results. The performance of this test has not been evaluated in women or individuals less than 18 years of age. Becky Bowens MD LAB MICROBIOLOGY - GENER AL ORDERABLES Final Result Performing Organization Address [facility] de Phone Number RHIANNA [facility] [email or web address] [address] [facility] * POCUS Female TVUS, (02/27/2025 7:03 [...] signed by Denny Richardson on Thursday, March 13, 2025 at [...] CERNER BJ Neutrophil pct 70.5 % [facility] Comment: Interpretive Data Percent cell count reference ranges are not reported, since discordance with absolute values may lead to misinterpretation of CBC data. Current Interpretive Data was last revised on 2017. Imm gran pct 0.6 % [facility] Comment: Interpretive Data Percent cell count reference ranges are not reported, since discordance with absolute values may lead to misinterpretation of CBC data. Current Interpretive Data was last revised on 2017. Lymphocyte pct 18.2 % [facility] Comment: Interpretive Data Percent cell count reference ranges are not reported, since discordance with absolute values may lead to misinterpretation of CBC data. Current Interpretive Data was last revised on 2017. Monocyte pct 8.1 % [facility] Comment: Interpretive Data Percent cell count reference ranges are not reported, since discordance with absolute values may lead to misinterpretation of CBC data. Current Interpretive Data was last revised on 2017. Eosinophil pct 2.1 % [facility] Comment: Interpretive Data Percent cell count reference ranges are not reported, since discordance with absolute values may lead to misinterpretation of CBC data. Current Interpretive Data was last revised on 2017. Basophil pct 0.5 % [facility] Comment: Interpretive Data Percent cell count reference ranges are not reported, since discordance with absolute values may lead to misinterpretation of CBC data. Current Interpretive Data was last revised on 2017. Blood 02/27/2025 5:08 AM CDT 02/27/2025 5:35 AM CDT us Denny Richardson MD LAB BLOOD ORDERABLES Final Re sult [facility] Department [email or web address] [address] * (ABNORMAL) CBC with auto differential (02/27/2025 5:08 AM CDT) Pathologist [facility] WBC 13.06(H) 3.80 - 9.90 K/cumm Hgb 12.8 11.9 - 15.5 g/dL [facility] Hct 38.3 35.6 - 45.5 % [facility] Plt 334 150 - 400 K/cumm [facility] MPV 10.2 9.1 - 12.[address] [facility] RBC 4.16 3.90 - 5.20 M/cumm [facility] MCV 92.1 81.3 - 96.[address] [facility] MCH 30.8 27.1 - 33.[address] [facility] MCHC 33.4 32.3 - 35.7 g/dL [facility] RDW CV 13.6 11.1 - 14.9 % [facility] RDW SD 45.7 35.7 - 48.[address] [facility] NRBC abs 0.00 0.00 - 0.01 K/cumm [facility] Blood Venous blood specimen / Unknown 02/27/2025 5:08 AM CDT 02/27/2025 5:35 AM CDT us Denny Richardson MD LAB BLOOD ORDERABLES Final Re sult RHIANNA [facility] Department [place] [address] * ABO/Rh (02/27/2025 5:08 AM CDT) Pathologist [facility] ABO Rh A Positive Blood 02/27/2025 5:08 AM CDT 02/27/2025 5:43 AM CDT Denny Richardson MD LAB BLOOD BANK TEST ORDERABLE S Final Result Performing Organization Address [facility] Co de Phone Number RHIANNA [facility] [place] [address] * (ABNORMAL) hCG, blood, quantitative (02/27/2025 5:08 [...] ORDERABLES Final Re sult Performing Organization Address [facility] Co de Phone Number [facility] [email or web address] [address] * US Ob Under 14 Weeks (02/21/2025 [...] Lawrence Soares M.D. RB: ROBB Report ID: [id number] Reading Location: [id number] Procedure Note Lawrence Soares MD - 02/21/2025 [...] Lawrence Soares M.D. RB: ROBB Report ID: [id number] Reading Location: [place] [address] us Andrez Skinner MD IMG OB US [...] BLOOD ORDERABLE S Final Result [facility] [place]) 2 [facility] Department [place] [address] * (ABNORMAL) CBC without differential [...] S Final Result [facility] (RICHARD) 1 [facility] Department [place] [address] * (ABNORMAL) hCG, blood, quantitative (02/21/2025 9:22 [...] S Final Result RHIANNA DIAZ (RICHARD) 1 [facility] [place] [address] * (ABNORMAL) Basic metabolic panel (02/21/2025 9:22 [...] S Final Result RHIANNA DIAZ (RICHARD) 1 [facility] Department [place] [address] * (ABNORMAL) POCT hCG, urine (02/19/2025 3:34 PM CDT) HCG, ur, POC Positive(A) Negative Lot Number [id number] QC Backgroud Clear Acceptable QC Control Line Acceptable Urine 02/19/2025 3:34 PM CDT Mare Falk MD POINT OF CARE TEST ORDERA BLES Final Result from Last 3 Months Insurance [facility] IDIA IDIA Care Teams Undercover Operator Relationship Specialty Start Date End Date Priyank Mitchell MD PCP - General 03/18/17 Danielle Haas MD Surgeon Vascular Surgery 04/07/22 Duy Kerr MD [address] [address] Mold Holder Hematology 03/01/23
--- OUTSIDE RECORDS SUMMARY | 2025-03-19 18:40 | XMS_ITS | Clinical Summary ---
Author Organization [facility] Address [address] [place] [address] Phone Care Team Providers Care Picture Enlarger Name Role Phone Priyank Mitchell MD Primary Care Provider [phone] Allergies Active Allergy Reactions Criticality Noted Date [...] Comments Blood Pressure 104/68 08/23/2019 8:41 AM DIE STAMPER Pulse 72 08/23/2019 8:41 AM DIE STAMPER Temperature 36.4 C (97.6 F) 08/23/2019 8:41 AM DIE STAMPER Respiratory Rate 16 08/23/2019 8:41 AM DIE STAMPER Oxygen Saturation 98% 08/23/2019 8:41 AM DIE STAMPER Inhaled Oxygen Concentration - - Weight 95.3 kg (210 lb 1.6 oz) 08/23/2019 8:41 A M DIE STAMPER Height 157.5 cm (5' 2) 08/23/2019 8:41 AM DIE STAMPER Body Mass Index 38.43 08/23/2019 8:41 AM DIE STAMPER Plan of Treatment Health Maintenance Due Date [...] to complete this topic Insurance [facility]ICAID [facility] Care Teams Picture Enlarger Relationship Specialty Start Date End Date Priyank Mitchell MD [address] [place] [address] PCP - General Family Medicine 09/02/15
--- OUTSIDE RECORDS SUMMARY | 2025-03-19 18:40 | XMS_ITS | Clinical Summary ---
Author Organization [facility] (Formerly [facility]) Ruiz Terrazsa Address [address] [place] [address] Care Team Providers Care Hospitality House Supervisor Name Role Phone Priyank Mitchell MD Primary [...] Comments Blood Pressure 121/74 07/21/2022 10:58 AM HARDWARE ENGINEERING MANAGER Pulse 69 07/21/2022 10:58 AM HARDWARE ENGINEERING MANAGER Temperature 36.4 C (97.5 F) 07/21/2022 10:58 AM HARDWARE ENGINEERING MANAGER Respiratory Rate 14 07/21/2022 10:58 AM HARDWARE ENGINEERING MANAGER Oxygen Saturation 98% 07/21/2022 10:58 AM HARDWARE ENGINEERING MANAGER Inhaled Oxygen Concentration - - Weight 84.9 kg (187 lb 3.2 oz) 07/21/2022 10:58 AM HARDWARE ENGINEERING MANAGER Height 157.5 cm (5' 2) 04/29/2022 1:42 [...] SMEAR 2019 INFLUENZA VACCINE (#1) 2025 Insurance [facility] MEDICAID Care Teams Hospitality House Supervisor Relationship Specialty Start Date End Date Priyank Mitchell MD [address] [id number] PCP - General Family Practice 07/21/22
== END 2025-03-19 22:44 | disposition left against medical advice (07) ==
PROVIDERS: Emergency Provider Registered Nurse; PCP Family Medicine
DX: O9A.311 Physical abuse complicating pregnancy, first trimester (principal); R10.9 Unspecified abdominal pain; O09.521 Supervision of elderly multigravida, first trimester; O99.111 Other diseases of the blood and blood-forming organs and certain disorders involving the immune mechanism complicating pregnancy, first trimester; D68.2 Hereditary deficiency of other clotting factors; O99.341 Other mental disorders complicating pregnancy, first trimester; F41.9 Anxiety disorder, unspecified; F31.9 Bipolar disorder, unspecified; O99.331 Smoking (tobacco) complicating pregnancy, first trimester; F17.290 Nicotine dependence, other tobacco product, uncomplicated; Z3A.08 8 weeks gestation of pregnancy; Z87.440 Personal history of urinary (tract) infections; Y07.499 Other family member, perpetrator of maltreatment and neglect
CPT/HCPCS: 36415; 76801; 80053; 81003; 85025; 85610; 85730; 99284